=== PATIENT | female | born 1940 | race American Indian/Alaskan Native ===

== ENCOUNTER 2017-03-07 22:21 | Emergency (ER) | payer MEDICARE, OTHER ==
[~2017-03-07] VITALS: Ht 160 cm; Wt 59.1 kg
[~2017-03-07 22:21] MED LIST: ALBU8.5H8 INH; APIX5TAB3 PO; ARA20T; CELE-193 PO; FLUT1DIS INH; FOLI1TAB16 PO; HYDR200T PO; LEVO50TA8 PO; LEVO750T46 PO; LORA10TA7 PO; MULT-933 PO; PANT-47 PO; POTA20TA19 PO; PRED5TAB49 PO; ROSU20TA PO; SOTA80TA69 PO; TIOT18CA3 INH
[2017-03-07] MEDS ORDERED: HYDROmorphone inj. 0.5 MG/0.5 ML DISP.SYRIN IV ONE (23:05)
[2017-03-07] MEDS ORDERED: ondansetron/PF 4mg/2ml inj IV ONE (23:05)
[2017-03-07 23:13] LABS: BASOPHILS # (AUTO) 0.1 X10'3 (0-0.2); BASOPHILS % (AUTO) 0.5 % (0-1); EOSINOPHILS # (AUTO) 0.1 X10'3 (0-0.9); EOSINOPHILS % (AUTO) 1.1 % (0-6); HEMATOCRIT 40.6 % (35.0-45.0); HEMOGLOBIN 13.1 g/dl (12.0-16.0); LYMPHOCYTES # (AUTO) 2.1 X10'3 (1.1-4.8); LYMPHOCYTES % (AUTO) 15.7 % (21-51); MEAN CORPUSCULAR HEMOGLOBIN 26.1 PG (27.0-31.0); MEAN CORPUSCULAR HGB CONC 32.2 % (33.0-36.5); MEAN CORPUSCULAR VOLUME 81.2 FL (78-98); MEAN PLATELET VOLUME 9.6 FL (7.4-10.4); MONOCYTES # (AUTO) 0.7 X10'3 (0-0.9); MONOCYTES % (AUTO) 5.4 % (2-12); NEUTROPHILS # (AUTO) 10.3 X10'3 (1.8-7.7); NEUTROPHILS % (AUTO) 77.3 % (42-75); PLATELET COUNT 352 X10'3 (140-440); RED BLOOD COUNT 4.99 X10'6 (4.20-5.60); RED CELL DISTRIBUTION WIDTH 16.7 % (11.5-14.5); WHITE BLOOD COUNT 13.3 X10'3 (4.5-11.0)
[2017-03-07 23:18] LABS: PROTHROMBIN TIME 10.2 SECONDS (9.0-12.0)
[2017-03-07 23:24] LABS: ALANINE AMINOTRANSFERASE 19 U/L (12-78); ALBUMIN 3.4 G/DL (3.4-5.0); ALBUMIN/GLOBULIN RATIO 0.8 (1.1-1.5); ALKALINE PHOSPHATASE 125 IU/L (46-116); ANION GAP 14 (8-16); ASPARTATE AMINO TRANSFERASE 14 U/L (10-37); BILIRUBIN,TOTAL 0.8 MG/DL (0.1-1.0); BLOOD UREA NITROGEN 12 MG/DL (7-18); CALCIUM 9.2 MG/DL (8.5-10.1); CHLORIDE 100 MMOL/L (99-107); GLUCOSE 137 MG/DL (70-104); LIPASE 138 U/L (73-393); POTASSIUM 3.2 MMOL/L (3.5-5.1); SODIUM 138 MMOL/L (135-145); TOTAL CARBON DIOXIDE 24.5 MMOL/L (24-32); TOTAL PROTEIN 7.8 G/DL (6.4-8.2); eGFR > 90 ML/MIN
[2017-03-07] MEDS ORDERED: potassium Cl 20 mEq SR tablet PO STA (23:35)
[2017-03-08 01:05] LABS: CLARITY,URINE Clear (Clear); COLOR,URINE Yellow (Yellow); GLUCOSE, URINE Negative (Neg); KETONES,URINE 15 mg/dl (Neg); LEUKOCYTE ESTERASE ,URINE Negative (Neg); NITRITES, URINE Negative (Neg); OCCULT BLOOD,URINE Negative (Neg); PH,URINE 6.5 (4.8-8.0); PROTEIN,URINE Trace mg/dl (Neg)
[2017-03-08 01:06] LABS: UA COLLECTION TYPE CLN CATCH MIDSTREAM
[2017-03-08 01:12] LABS: BACTERIA,URINE NONE SEEN /HPF (Neg); MUCUS STRANDS FEW /LPF (Neg); RBC,URINE NONE SEEN /HPF (0-2); SQUAMOUS EPITHELIAL CELL,UR FEW /LPF (FEW); WBC,URINE NONE SEEN /HPF (0-4)
[2017-03-08] MEDS ORDERED: labetalol 20mg/4ml (5mg/ml) syringe IV ONE (01:15)
[2017-03-08] MEDS ORDERED: labetalol 5mg/ml 20ml inj. IV ONE (01:33)
[2017-03-08 01:49] VITALS: BP 165/70
== END 2017-03-08 01:54 | disposition home or self-care (01) ==
LOC: ER 22:22
DX: R10.84 Generalized abdominal pain (principal); R11.2 Nausea with vomiting, unspecified; R06.02 Shortness of breath; I10 Essential (primary) hypertension; M06.9 Rheumatoid arthritis, unspecified; Z90.49 Acquired absence of other specified parts of digestive tract; Z88.8 Allergy status to other drugs, medicaments and biological substances; Z86.73 Personal history of transient ischemic attack (TIA), and cerebral infarction without residual deficits
CPT/HCPCS: 36415; 71045; 74176; 80053; 81001; 83605; 83690; 84484; 85025; 85610; 93005; 96374; 96375; 99285; J1170; J2405; J3490

== ENCOUNTER 2018-04-14 14:54 | Inpatient (IN) | payer MEDICARE, OTHER ==
[2018-04-08 13:25] LABS: BASOPHILS # (AUTO) 0.1 X10'3 (0-0.2); BASOPHILS % (AUTO) 1.1 % (0-1); EOSINOPHILS # (AUTO) 0.5 X10'3 (0-0.9); EOSINOPHILS % (AUTO) 4.4 % (0-6); HEMATOCRIT 37.2 % (35.0-45.0); LYMPHOCYTES # (AUTO) 2.2 X10'3 (1.1-4.8); LYMPHOCYTES % (AUTO) 20.9 % (21-51); MEAN CORPUSCULAR HEMOGLOBIN 27.2 PG (27.0-31.0); MEAN CORPUSCULAR HGB CONC 32.4 g/dL (33.0-36.5); MEAN CORPUSCULAR VOLUME 84.1 FL (78-98); MEAN PLATELET VOLUME 8.2 FL (7.4-10.4); MONOCYTES # (AUTO) 0.7 X10'3 (0-0.9); MONOCYTES % (AUTO) 6.4 % (2-12); NEUTROPHILS # (AUTO) 7.1 X10'3 (1.8-7.7); NEUTROPHILS % (AUTO) 67.2 % (42-75); PLATELET COUNT 410 X10'3 (140-440); RED BLOOD COUNT 4.43 X10'6 (4.20-5.60); WHITE BLOOD COUNT 10.6 X10'3 (4.5-11.0)
[2018-04-08 13:33] LABS: ANION GAP 10 (8-16); BLOOD UREA NITROGEN 16 MG/DL (7-18); BUN/CREATININE RATIO 27.1 (6.6-38.0); CALCIUM 9.5 MG/DL (8.5-10.1); CHLORIDE 106 MMOL/L (99-107); CREATININE 0.59 MG/DL (0.40-0.90); GLUCOSE 92 MG/DL (70-104); SODIUM 142 MMOL/L (135-145); TOTAL CARBON DIOXIDE 25.7 MMOL/L (24-32); eGFR > 90 ML/MIN
[2018-04-08 13:37] LABS: PARTIAL THROMBOPLASTIN TIME 32 SECONDS (22-32); PROTHROMBIN TIME 10.5 SECONDS (9.0-12.0)
[~2018-04-14] VITALS: Ht 160 cm; Wt 58.2 kg
[2018-04-14] VITALS (7 sets, daily range): BP systolic 79–184; BP diastolic 47–74
[~2018-04-14 14:54] MED LIST changes: -HYDR200T PO; +HYDR200T80 PO; -SOTA80TA69 PO; +SOTA80TA73 PO; +albuterol 2.5 MG/3 ML nebule NEB SCH
[2018-04-14] MEDS ORDERED: LORazepam 0.5 MG tablet PO ONE (15:15)
[2018-04-14] MEDS ORDERED: diphenhydrAMINE 25mg capsule PO ONE (15:15)
[2018-04-14] MEDS ORDERED: LEVO75TA7 PO (15:55)
[2018-04-14] MEDS ORDERED: CLOP75TA15 PO (15:55)
[2018-04-14] MEDS ORDERED: IRON28TA4 PO (15:55)
[2018-04-14] MEDS ORDERED: CHOL10002 PO (15:55)
[2018-04-14] MEDS ORDERED: ALBU6.7H INH (15:55)
[2018-04-14] MEDS ORDERED: ASPI-1265 PO (15:55)
[2018-04-14] MEDS ORDERED: SOTA80TA73 PO (16:02)
[2018-04-14] MEDS ORDERED: APIX5TAB3 PO (16:02)
[2018-04-14] MEDS ORDERED: iohexol 350 MG/ML 50ML vial IV ONE ×2 (20:11→21:15)
[2018-04-14] MEDS ORDERED: DOPamine 400mg/D5W 250ml 250 ML IV ONE (20:11)
[2018-04-14] MEDS ORDERED: phenylephrine 10mg/ml inj. ONE (20:11)
[2018-04-14] MEDS ORDERED: heparin 1,000unit/ml 10ml vial 10 ML ONE (20:11)
[2018-04-14] MEDS ORDERED: LIDOcaine 1% (10mg/ml)w/preservative injection 20ml MDV ONE (20:11)
[2018-04-14] MEDS ORDERED: iohexol 350MG/ML 100ml bottle IV ONE (20:11)
[2018-04-14] MEDS ORDERED: atropine 0.1mg/ml 10ml syringe ONE (20:11)
[2018-04-14] MEDS ORDERED: clopidogrel 300mg tablet ONE (21:18)
--- NOTE | 2018-04-14 21:41 | NUR ---
Patient in room . I have received report from Yaneli BAL and had the opportunity to ask questions and assume patient care. Waiting for pt arrival to [id number]
--- NOTE | 2018-04-14 22:04 | NUR ---
Pt now in room 3013B. R groin used for cath site. No signs of hematoma or bleeding. Family at the bedside. NS at 100ml/hr. No complaints at this time. VS 95/47 70 HR 99 RA 18 RR 97.8 oral
[2018-04-14] MEDS ORDERED: HYDROcodone/acetaminophen 5mg/325mg tablet PO PRN (22:25)
[2018-04-14] MEDS ORDERED: DOPamine 400mg/D5W 250ml 250 ML IV SCH (22:25)
[2018-04-14] MEDS ORDERED: OXAZEpam 15mg capsule PO PRN (22:25)
[2018-04-14] MEDS ORDERED: hydrALAZINE 20mg/ml inj. IV PRN (22:25)
--- NOTE | 2018-04-14 23:00 | NUR ---
200 ml of clear urine with bedpan
[2018-04-14] MEDS: HYDROcodone/acetaminophen 10/325mg tab PO PRN (23:08)
[2018-04-15] VITALS: BP 109/41
[2018-04-15] MEDS ORDERED: albuterol 2.5 MG/3 ML nebule NEB PRN
[2018-04-15 01:00] VITALS: BP 95/34
--- NOTE | 2018-04-15 01:00 | NUR ---
200 ml clear urine
[2018-04-15 02:00] VITALS: BP 117/69
[2018-04-15] MEDS: HYDROcodone/acetaminophen 10/325mg tab PO PRN ×3 (02:17→09:48)
[2018-04-15 03:00] VITALS: BP 122/58
--- NOTE | 2018-04-15 05:34 | NUR ---
Pt tolerated well getting up to bedside commode for the first time.
[2018-04-15 06:00] VITALS: BP 96/57
[2018-04-15] MEDS ORDERED: atorvastatin 10mg tablet PO SCH (08:00)
[2018-04-15] MEDS ORDERED: pantoprazole 40mg Tablet.DR PO SCH (08:00)
[2018-04-15] MEDS ORDERED: IRON POLYSACCH PO SCH (08:00)
[2018-04-15] MEDS ORDERED: levoTHYROXINE 75mcg tablet PO SCH (08:00)
[2018-04-15] MEDS ORDERED: IRON HEME POLYP PO SCH (08:00)
[2018-04-15] MEDS ORDERED: sotalol 80mg tablet PO SCH (08:00)
[2018-04-15] MEDS ORDERED: vitamin D (cholecalciferol) 1,000 unit tablet PO SCH (08:00)
[2018-04-15] MEDS ORDERED: budesonide 0.5mg/2ml UD nebule IH SCH (08:00)
[2018-04-15] MEDS ORDERED: apixaban 5mg tablet PO SCH (08:00)
[2018-04-15] MEDS ORDERED: multivitamins, therapeutics tablet PO SCH (08:00)
[2018-04-15] MEDS ORDERED: clopidogrel 75mg tablet PO SCH (08:00)
[2018-04-15] MEDS ORDERED: hydroxychloroquine 200mg tablet PO SCH (08:00)
--- NOTE | 2018-04-15 09:57 | NUR ---
Pt given d/c instructions, no further questions at this time, IV removed catheter tip intact, all personal items returned, pt to POV in WC
[2018-04-15] MEDS ORDERED: iohexol 350MG/ML 100ml bottle IV ONE (23:31)
[2018-04-15] MEDS ORDERED: iohexol 350 MG/ML 50ML vial IV ONE (23:32)
== END 2018-04-15 10:00 | disposition home or self-care (01) | DRG 36 ==
LOC: SSTAY O 14:54 → PCU 3S 21:15
PROVIDERS: ADMIT Internal Medicine Interventional Cardiology; ATTEND Internal Medicine Interventional Cardiology
PROC: 037K3DZ Dilation of Right Internal Carotid Artery with Intraluminal Device, Percutaneous Approach (ICD-10-PCS; principal; 2018-04-14)
DX: I65.21 Occlusion and stenosis of right carotid artery (principal); E78.5 Hyperlipidemia, unspecified; I10 Essential (primary) hypertension; I70.213 Atherosclerosis of native arteries of extremities with intermittent claudication, bilateral legs; J45.909 Unspecified asthma, uncomplicated; K21.9 Gastro-esophageal reflux disease without esophagitis; I48.0 Paroxysmal atrial fibrillation; M06.9 Rheumatoid arthritis, unspecified; Z79.01 Long term (current) use of anticoagulants; Z79.02 Long term (current) use of antithrombotics/antiplatelets; Z79.51 Long term (current) use of inhaled steroids; Z79.899 Other long term (current) drug therapy; Z86.73 Personal history of transient ischemic attack (TIA), and cerebral infarction without residual deficits; Z88.8 Allergy status to other drugs, medicaments and biological substances
CPT/HCPCS: 36223; 36415; 37215; 80048; 85025; 85610; 85730; 87070; 94760; A4620; A6257; C1725; C1769; C1876; C1884; C1887; C1894; G0378; J0461; J1265; J1644; J2001; J2370; J7030; J7626; Q0163; Q9967

== ENCOUNTER 2018-04-15 22:23 | Inpatient (IN) | payer MEDICARE, OTHER | END 2018-04-20 14:20 | disposition home or self-care (01) | LOC: PCU 3S 04-18 14:40 → ER 22:23 → ED HOLD 04-16 01:27 → CICU 2S 04-16 03:37 | PROC: 04CK0Z6 (ICD-10-PCS; principal; 2018-04-16 01:50) | PROC: 04UK0KZ Supplement Right Femoral Artery with Nonautologous Tissue Substitute, Open Approach (ICD-10-PCS; 2018-04-16 01:50) | DX: I74.3 Embolism and thrombosis of arteries of the lower extremities (principal); I70.209 Unspecified atherosclerosis of native arteries of extremities, unspecified extremity; I48.91 Unspecified atrial fibrillation ==

== ENCOUNTER 2019-01-28 14:16 | Outpatient (CLI) | payer MEDICARE, OTHER ==
[~2019-01-28 14:16] MED LIST changes: -ALBU8.5H8 INH; -ARA20T; -CELE-193 PO; +FERR325T28 PO; -FLUT1DIS INH; -FOLI1TAB16 PO; -HYDR200T80 PO; +HYDR200T84 PO; +LEVO50TA PO; -LEVO50TA8 PO; -LEVO750T46 PO; -LORA10TA7 PO; -MULT-933 PO; +MULT-955 PO; -PANT-47 PO; +PANT40TA4 PO; -POTA20TA19 PO; -PRED5TAB49 PO; -ROSU20TA PO; +ROSU20TA2 PO; -TIOT18CA3 INH; -albuterol 2.5 MG/3 ML nebule NEB SCH
== END 2019-01-28 23:59 | disposition home or self-care (01) ==
LOC: RAD 14:16
PROVIDERS: ATTEND Family Medicine
DX: I69.391 Dysphagia following cerebral infarction (principal); R13.12 Dysphagia, oropharyngeal phase; I69.322 Dysarthria following cerebral infarction; R49.0 Dysphonia; K21.9 Gastro-esophageal reflux disease without esophagitis; I10 Essential (primary) hypertension; Z87.891 Personal history of nicotine dependence
CPT/HCPCS: 74230

== ENCOUNTER 2019-09-29 05:41 | Day surgery (SDC) | payer MEDICARE, OTHER ==
[2019-09-22 16:23] LABS: BASOPHILS # (AUTO) 0.1 X10'3 (0-0.2); BASOPHILS % (AUTO) 1.4 % (0-1); EOSINOPHILS # (AUTO) 0.3 X10'3 (0-0.9); EOSINOPHILS % (AUTO) 4.8 % (0-6); LYMPHOCYTES # (AUTO) 1.8 X10'3 (1.1-4.8); LYMPHOCYTES % (AUTO) 28.7 % (21-51); MEAN CORPUSCULAR HEMOGLOBIN 27.9 PG (27.0-31.0); MEAN CORPUSCULAR HGB CONC 32.6 g/dL (33.0-36.5); MEAN CORPUSCULAR VOLUME 85.6 FL (78-98); MEAN PLATELET VOLUME 9.2 FL (7.4-10.4); MONOCYTES # (AUTO) 0.5 X10'3 (0-0.9); MONOCYTES % (AUTO) 8.1 % (2-12); NEUTROPHILS # (AUTO) 3.7 X10'3 (1.8-7.7); PRE OP HEMATOCRIT 35.1 % (35.0-45.0); PRE OP HEMOGLOBIN 11.5 g/dL (12.0-16.0); PRE OP PLATELET COUNT 296 X10'3 (140-440); RED BLOOD COUNT 4.11 X10'6 (4.20-5.60); RED CELL DISTRIBUTION WIDTH 15.6 % (11.5-14.5)
[2019-09-22 16:29] LABS: ALBUMIN 3.1 G/DL (3.4-5.0); ALBUMIN/GLOBULIN RATIO 0.7 (1.1-1.5); ALKALINE PHOSPHATASE 166 IU/L (46-116); BLOOD UREA NITROGEN 24 MG/DL (7-18); BUN/CREATININE RATIO 35.8 (6.6-38.0); CALCIUM 8.9 MG/DL (8.5-10.1); CHLORIDE 107 MMOL/L (99-107); CREATININE 0.67 MG/DL (0.40-0.90); PRE OP ALT 18 U/L (30-65); PRE OP ANION GAP 9 (8-16); PRE OP AST 16 U/L (10-37); PRE OP BILIRUB, TOTAL 0.6 MG/DL (0.0-1.0); PRE OP GLUCOSE 99 MG/DL (70-104); PRE OP SODIUM 139 MMOL/L (135-145); TOTAL CARBON DIOXIDE 22.6 MMOL/L (24-32); TOTAL PROTEIN 7.6 G/DL (6.4-8.2); eGFR 85 ML/MIN
[~2019-09-29] VITALS: Ht 160 cm; Wt 57.6 kg
[2019-09-29] VITALS (16 sets, daily range): BP systolic 87–129; BP diastolic 36–69
[~2019-09-29 05:41] MED LIST changes: +ADV50100 INH; +ATOR40TA72 PO; +CALC-216 PO; +CELE-85 PO; +CLON0.1T2 PO; +DOCUMENT DATE & TIME OF BETA-BLOCKER PO ONE; +FEXO-25 PO; +LISI10TA4 PO; -ROSU20TA2 PO; +VANCOMYCIN INJ 1000 MG in NORMAL SALINE 250ml IV.SOLN IV ONE; +VITAMIN D3; +[UNRECOGNIZED DRUG - CODE] INJ; +famotidine 20mg tablet PO ONE; +ringers solution, lacted 1,000 ML IV SCH
[2019-09-29] MEDS ORDERED: ceFAZolin 2gm in dextrose, iso 50 ML IV ONE (06:00)
[2019-09-29] MEDS ORDERED: LIDOcaine 1% (10mg/ml) 2ml vial ONE (06:05)
[2019-09-29] MEDS ORDERED: fentaNYL/PF 50MCG/1 ML 2ML syringe ONE (07:13)
[2019-09-29] MEDS ORDERED: midazolam 2 mg/2 ml injection ONE (07:13)
[2019-09-29] MEDS ORDERED: ringers solution, lacted 1,000 ML IV SCH (07:44)
[2019-09-29] MEDS ORDERED: ondansetron/PF 4mg/2ml inj IV PRN (07:45)
[2019-09-29] MEDS ORDERED: proCHLORperazine 10 MG/2 ml inj IV PRN (07:45)
[2019-09-29] MEDS ORDERED: morphine 4 MG/ML inj SYRINge IV PRN (07:45)
[2019-09-29] MEDS ORDERED: morphine 2 MG/ML inj. syringe IV PRN (07:45)
[2019-09-29] MEDS ORDERED: meperidine/PF 25mg/ml syringe IV PRN ×3 (07:45)
--- NOTE | 2019-09-29 08:10 | NUR ---
Received from OR via BED, accompanied by Anesthesiologist DR POWERS-- and report given by Anesthesiolgist. PATIENT A&OX4, DENIES PAIN, V/S WNL, NEUROVASCULAR CHECKS INTACT, 20G PIV RUE, SCD ON, RIGHT HIP HIP BANDAIDS CDI, SENSATIONS AT T11
--- NOTE | 2019-09-29 10:30 | NUR ---
PATIENT A&OX4, DENIES PAIN, V/S WNL, NEUROVASCULAR CHECKS INTACT, 20G PIV RUE, SCD OFF, RIGHT HIP HIP BANDAIDS CDI, FULL SENSATIONS NOW. PATIENT TAKEN TO PAS UNIT AWAITING RIDE HOME WHICH WILL ARRIVE AT 1130. PAS RN HAS TAKEN OVER PATIENT CARE. I HAVE REVIEWED D/C INSTRUCTIONS WITH PATIENT SHE HAS VERBALIZED UNDERSTANDING.
--- NOTE | 2019-09-29 11:45 | NUR ---
AWAKE VS WNL, PAIN MINIMAL, DSG DI, UP TP BATHROOM X2, VOIDED QS. RIDE HOME HAS ARRIVED, DISCH INSTR GIVEN TO PT, DISCHARGED HOME.
== END 2019-09-29 11:45 | disposition home or self-care (01) ==
LOC: PAS 05:41
PROVIDERS: ATTEND Orthopaedic Surgery
DX: T84.84XA Pain due to internal orthopedic prosthetic devices, implants and grafts, initial encounter (principal); J43.9 Emphysema, unspecified; I25.10 Atherosclerotic heart disease of native coronary artery without angina pectoris; I48.91 Unspecified atrial fibrillation; I10 Essential (primary) hypertension; M06.9 Rheumatoid arthritis, unspecified; E03.9 Hypothyroidism, unspecified; K21.9 Gastro-esophageal reflux disease without esophagitis; M19.032 Primary osteoarthritis, left wrist; M18.11 Unilateral primary osteoarthritis of first carpometacarpal joint, right hand; Z11.59 Encounter for screening for other viral diseases; Z79.899 Other long term (current) drug therapy; Z88.8 Allergy status to other drugs, medicaments and biological substances; Z98.890 Other specified postprocedural states; Z96.642 Presence of left artificial hip joint; Z87.891 Personal history of nicotine dependence; Z86.73 Personal history of transient ischemic attack (TIA), and cerebral infarction without residual deficits; Y83.8 Other surgical procedures as the cause of abnormal reaction of the patient, or of later complication, without mention of misadventure at the time of the procedure; Y92.89 Other specified places as the place of occurrence of the external cause
CPT/HCPCS: 20680; 36415; 73502; 76000; 80053; 82948; 85025; 86885; 86900; 86901; 93005; C1713; J2001; J2250; J3010; J3370; J7120; U0003; A4618; A7000

== ENCOUNTER 2019-11-08 13:47 | Emergency (ER) | payer MEDICARE, OTHER ==
[~2019-11-08] VITALS: Ht 160 cm; Wt 53.2 kg
[~2019-11-08 13:47] MED LIST changes: -DOCUMENT DATE & TIME OF BETA-BLOCKER PO ONE; -PANT40TA4 PO; +PANT40TA54 PO; -VANCOMYCIN INJ 1000 MG in NORMAL SALINE 250ml IV.SOLN IV ONE; -famotidine 20mg tablet PO ONE; -ringers solution, lacted 1,000 ML IV SCH
[2019-11-08] MEDS ORDERED: normal saline 1000ML IV soln IVB ONE (15:20)
[2019-11-08 15:58] LABS: BASOPHILS % (AUTO) 0.3 % (0-1); EOSINOPHILS # (AUTO) 0.2 X10'3 (0-0.9); EOSINOPHILS % (AUTO) 1.2 % (0-6); HEMATOCRIT 26.5 % (35.0-45.0); LYMPHOCYTES # (AUTO) 1.1 X10'3 (1.1-4.8); LYMPHOCYTES % (AUTO) 8.5 % (21-51); MEAN CORPUSCULAR HEMOGLOBIN 28.8 PG (27.0-31.0); MEAN CORPUSCULAR VOLUME 84.7 FL (78-98); MEAN PLATELET VOLUME 8.6 FL (7.4-10.4); MONOCYTES # (AUTO) 0.7 X10'3 (0-0.9); MONOCYTES % (AUTO) 5.4 % (2-12); NEUTROPHILS # (AUTO) 11.2 X10'3 (1.8-7.7); NEUTROPHILS % (AUTO) 84.6 % (42-75); PLATELET COUNT 324 X10'3 (140-440); RED BLOOD COUNT 3.13 X10'6 (4.20-5.60); RED CELL DISTRIBUTION WIDTH 16.7 % (11.5-14.5); WHITE BLOOD COUNT 13.3 X10'3 (4.5-11.0)
[2019-11-08 16:15] LABS: CLARITY,URINE CLEAR (Clear); COLOR,URINE YELLOW (Yellow); GLUCOSE, URINE NEGATIVE (Neg); KETONES,URINE NEGATIVE (Neg); LEUKOCYTE ESTERASE ,URINE TRACE (Neg); NITRITES, URINE NEGATIVE (Neg); OCCULT BLOOD,URINE MODERATE (Neg); PROTEIN,URINE TRACE mg/dl (Neg); UROBILINOGEN,URINE 0.2 E.U/dL (0.2-1.0)
[2019-11-08 16:18] LABS: ALANINE AMINOTRANSFERASE 129 U/L (12-78); ALBUMIN 2.3 G/DL (3.4-5.0); ALBUMIN/GLOBULIN RATIO 0.5 (1.1-1.5); ANION GAP 11 (8-16); ASPARTATE AMINO TRANSFERASE 108 U/L (10-37); BILIRUBIN,TOTAL 1.9 MG/DL (0.1-1.0); BLOOD UREA NITROGEN 19 MG/DL (7-18); CALCIUM 8.7 MG/DL (8.5-10.1); CHLORIDE 99 MMOL/L (99-107); CREATININE 0.76 MG/DL (0.40-0.90); GLUCOSE 73 MG/DL (70-104); POTASSIUM 4.2 MMOL/L (3.5-5.1); SODIUM 132 MMOL/L (135-145); TOTAL CARBON DIOXIDE 22.1 MMOL/L (24-32); TOTAL PROTEIN 6.7 G/DL (6.4-8.2); eGFR 74 ML/MIN
--- NOTE | 2019-11-08 16:18 | NUR ---
placed pt on 2L n/c for increased Saturation
--- NOTE | 2019-11-08 16:24 | NUR ---
placed pt on 4L n/c for increased saturation now sat at 98%
[2019-11-08 16:26] LABS: UA COLLECTION TYPE STRAIGHT CATH
[2019-11-08 16:27] LABS: BACTERIA,URINE FEW /HPF (Neg); SQUAMOUS EPITHELIAL CELL,UR FEW /LPF (FEW)
[2019-11-08 16:28] LABS: MUCUS STRANDS FEW /LPF (Neg); RENAL CELLS, URINE FEW /HPF; TRANSITIONAL EPI CELLS,URINE FEW /HPF
[2019-11-08 16:34] LABS: ALKALINE PHOSPHATASE 1378 IU/L (46-116)
[2019-11-08] MEDS ORDERED: iohexol 300mg/ml 100ml inj. ONE (16:36)
[2019-11-08 17:43] VITALS: BP 154/59
[2019-11-08] MEDS ORDERED: methylPREDNISolone acetate 80mg/ml inj**IM only IM ONE (18:35)
== END 2019-11-08 18:59 | disposition home or self-care (01) ==
LOC: ER 13:47
DX: R13.10 Dysphagia, unspecified (principal); E86.0 Dehydration; I10 Essential (primary) hypertension; M06.9 Rheumatoid arthritis, unspecified; Z86.73 Personal history of transient ischemic attack (TIA), and cerebral infarction without residual deficits; Z90.49 Acquired absence of other specified parts of digestive tract; Z98.890 Other specified postprocedural states; Z88.8 Allergy status to other drugs, medicaments and biological substances; Z79.01 Long term (current) use of anticoagulants; Z79.899 Other long term (current) drug therapy
CPT/HCPCS: 36415; 70491; 80053; 81001; 85025; 87088; 96360; 96372; 99285; J1040; J7030; Q9967

== ENCOUNTER 2021-01-06 16:18 | Emergency (ER) | payer MEDICARE, OTHER ==
[~2021-01-06] VITALS: Ht 160 cm; Wt 52.3 kg
[~2021-01-06 16:18] MED LIST changes: +AMIO200T67 PO; +AZAT50TA18 PO; -CELE-85 PO; -FEXO-25 PO; +LISI10TA27 PO; -LISI10TA4 PO; -SOTA80TA73 PO; -VITAMIN D3; +[UNRECOGNIZED DRUG - CODE] INJ; -[UNRECOGNIZED DRUG - CODE] INJ
[2021-01-06 17:50] LABS: BASOPHILS # (AUTO) 0.1 X10'3 (0-0.2); BASOPHILS % (AUTO) 1.1 % (0-1); EOSINOPHILS # (AUTO) 0.1 X10'3 (0-0.9); EOSINOPHILS % (AUTO) 2.1 % (0-6); HEMOGLOBIN 12.8 g/dl (12.0-16.0); LYMPHOCYTES # (AUTO) 1.4 X10'3 (1.1-4.8); LYMPHOCYTES % (AUTO) 20.4 % (21-51); MEAN CORPUSCULAR HEMOGLOBIN 30.3 PG (27.0-31.0); MEAN CORPUSCULAR HGB CONC 33.6 g/dL (33.0-36.5); MEAN CORPUSCULAR VOLUME 90.3 FL (78-98); MEAN PLATELET VOLUME 8.9 FL (7.4-10.4); MONOCYTES # (AUTO) 0.5 X10'3 (0-0.9); MONOCYTES % (AUTO) 7.7 % (2-12); NEUTROPHILS # (AUTO) 4.6 X10'3 (1.8-7.7); NEUTROPHILS % (AUTO) 68.7 % (42-75); PLATELET COUNT 262 X10'3 (140-440); RED BLOOD COUNT 4.21 X10'6 (4.20-5.60); RED CELL DISTRIBUTION WIDTH 17.5 % (11.5-14.5); WHITE BLOOD COUNT 6.7 X10'3 (4.5-11.0)
[2021-01-06 18:01] LABS: PARTIAL THROMBOPLASTIN TIME 31 SECONDS (22-32)
[2021-01-06 18:04] LABS: ALANINE AMINOTRANSFERASE 40 U/L (12-78); ALBUMIN 3.3 G/DL (3.4-5.0); ALBUMIN/GLOBULIN RATIO 0.8 (1.1-1.5); ALKALINE PHOSPHATASE 288 IU/L (46-116); ANION GAP 11 (8-16); ASPARTATE AMINO TRANSFERASE 29 U/L (10-37); BILIRUBIN,TOTAL 0.9 MG/DL (0.1-1.0); BLOOD UREA NITROGEN 16 MG/DL (7-18); BUN/CREATININE RATIO 25.8 (6.6-38.0); CALCIUM 8.8 MG/DL (8.5-10.1); CHLORIDE 106 MMOL/L (99-107); CREATININE 0.62 MG/DL (0.40-0.90); GLUCOSE 100 MG/DL (70-104); POTASSIUM 3.3 MMOL/L (3.5-5.1); SODIUM 143 MMOL/L (135-145); TOTAL CARBON DIOXIDE 25.6 MMOL/L (24-32); TOTAL PROTEIN 7.5 G/DL (6.4-8.2); eGFR > 90 ML/MIN
[2021-01-06 18:14] LABS: MAGNESIUM 1.9 MG/DL (1.5-2.4)
[2021-01-06] MEDS ORDERED: potassium Cl 20 mEq SR tablet PO STA (19:37)
[2021-01-06 20:20] VITALS: BP 213/89
[2021-01-06 21:37] LABS: CLARITY,URINE CLEAR (Clear); COLOR,URINE YELLOW (Yellow); GLUCOSE, URINE NEGATIVE (Neg); KETONES,URINE NEGATIVE (Neg); LEUKOCYTE ESTERASE ,URINE TRACE (Neg); NITRITES, URINE NEGATIVE (Neg); OCCULT BLOOD,URINE NEGATIVE (Neg); PROTEIN,URINE NEGATIVE (Neg); UA COLLECTION TYPE CLN CATCH MIDSTREAM; UROBILINOGEN,URINE 0.2 E.U/dL (0.2-1.0)
[2021-01-06 21:42] LABS: BACTERIA,URINE FEW /HPF (Neg); MUCUS STRANDS NONE SEEN /LPF (Neg); RBC,URINE 0-2 /HPF (0-2); SQUAMOUS EPITHELIAL CELL,UR FEW /LPF (FEW); WBC,URINE 0-4 /HPF (0-4)
== END 2021-01-06 20:23 | disposition home or self-care (01) ==
LOC: ER 16:19
DX: R20.0 Anesthesia of skin (principal); E87.6 Hypokalemia; E11.65 Type 2 diabetes mellitus with hyperglycemia; I48.91 Unspecified atrial fibrillation; I10 Essential (primary) hypertension; Z86.73 Personal history of transient ischemic attack (TIA), and cerebral infarction without residual deficits; Z90.49 Acquired absence of other specified parts of digestive tract; Z98.890 Other specified postprocedural states; Z88.8 Allergy status to other drugs, medicaments and biological substances; Z79.899 Other long term (current) drug therapy
CPT/HCPCS: 36415; 70450; 71045; 80053; 81001; 83735; 84484; 85025; 85610; 85730; 87088; 93005; 99285

== ENCOUNTER 2021-07-31 16:13 | Emergency (ER) | payer MEDICARE, OTHER ==
[~2021-07-31] VITALS: Ht 160 cm; Wt 53.0 kg
[~2021-07-31 16:13] MED LIST changes: +AMIO100T4 PO; -AMIO200T67 PO; +CHOL100046 PO; -CLON0.1T2 PO; +CLOP75TA34 PO; +DILT90CA PO; -[UNRECOGNIZED DRUG - CODE] INJ
[2021-07-31 18:01] LABS: BASOPHILS # (AUTO) 0.1 X10'3 (0-0.2); EOSINOPHILS % (AUTO) 0.4 % (0-6); HEMATOCRIT 34.5 % (35.0-45.0); HEMOGLOBIN 11.5 g/dl (12.0-16.0); LYMPHOCYTES # (AUTO) 0.7 X10'3 (1.1-4.8); MEAN CORPUSCULAR HEMOGLOBIN 30.1 PG (27.0-31.0); MEAN CORPUSCULAR HGB CONC 33.3 g/dL (33.0-36.5); MEAN CORPUSCULAR VOLUME 90.4 FL (78-98); MEAN PLATELET VOLUME 8.6 FL (7.4-10.4); MONOCYTES # (AUTO) 0.5 X10'3 (0-0.9); MONOCYTES % (AUTO) 7.8 % (2-12); NEUTROPHILS # (AUTO) 5.4 X10'3 (1.8-7.7); NEUTROPHILS % (AUTO) 80.8 % (42-75); PLATELET COUNT 327 X10'3 (140-440); RED BLOOD COUNT 3.82 X10'6 (4.20-5.60); RED CELL DISTRIBUTION WIDTH 16.9 % (11.5-14.5); WHITE BLOOD COUNT 6.7 X10'3 (4.5-11.0)
[2021-07-31 18:21] LABS: ALANINE AMINOTRANSFERASE 241 U/L (12-78); ALBUMIN 3.2 G/DL (3.4-5.0); ALBUMIN/GLOBULIN RATIO 0.8 (1.1-1.5); ALKALINE PHOSPHATASE 335 IU/L (46-116); ANION GAP 12 (8-16); ASPARTATE AMINO TRANSFERASE 108 U/L (10-37); BILIRUBIN,TOTAL 0.9 MG/DL (0.1-1.0); BLOOD UREA NITROGEN 22 MG/DL (7-18); BUN/CREATININE RATIO 23.9 (6.6-38.0); CALCIUM 8.9 MG/DL (8.5-10.1); CHLORIDE 106 MMOL/L (99-107); CREATININE 0.92 MG/DL (0.40-0.90); GLUCOSE 104 MG/DL (70-104); POTASSIUM 3.9 MMOL/L (3.5-5.1); SODIUM 140 MMOL/L (135-145); TOTAL CARBON DIOXIDE 22.5 MMOL/L (24-32); TOTAL PROTEIN 7.3 G/DL (6.4-8.2); eGFR 59 ML/MIN
--- NOTE | 2021-07-31 18:25 | NUR ---
bedside report to cinthia arellano. pt assisted to restroom with wheechair by soda fountain manager.
[2021-07-31] MEDS ORDERED: normal saline 1000ml 1,000 ML IV ONE (18:50)
[2021-07-31 22:18] VITALS: BP 185/87
[2021-08-02 15:27] LABS: HBSAG SCREEN Negative (Negative); HEP A AB, IGM Negative (Negative); HEPATITIS C ANTIBODY 0.1 s/co ratio (0.0-0.9)
== END 2021-07-31 23:39 | disposition home or self-care (01) ==
LOC: ER 16:14
DX: N13.30 Unspecified hydronephrosis (principal); K59.00 Constipation, unspecified; R53.1 Weakness; R74.8 Abnormal levels of other serum enzymes; R20.0 Anesthesia of skin; I48.91 Unspecified atrial fibrillation; I10 Essential (primary) hypertension; M06.9 Rheumatoid arthritis, unspecified; Z86.73 Personal history of transient ischemic attack (TIA), and cerebral infarction without residual deficits; Z90.49 Acquired absence of other specified parts of digestive tract; Z88.8 Allergy status to other drugs, medicaments and biological substances; Z79.899 Other long term (current) drug therapy; Z79.01 Long term (current) use of anticoagulants
CPT/HCPCS: 36415; 71045; 76705; 80053; 83880; 84484; 85025; 93005; 96360; 99285; J7030; 86705; 86709; 86803; 87340

== ENCOUNTER 2021-08-02 15:34 | Emergency (ER) | payer MEDICARE, OTHER ==
[~2021-08-02] VITALS: Ht 160 cm; Wt 52.3 kg
[2021-08-02 16:11] VITALS: BP 158/84
== END 2021-08-02 23:04 | disposition left against medical advice (07) ==
LOC: ER 15:35
DX: M79.604 Pain in right leg (principal); Z53.21 Procedure and treatment not carried out due to patient leaving prior to being seen by health care provider

== ENCOUNTER 2021-12-13 23:04 | Emergency (ER) | payer MEDICARE, OTHER ==
[~2021-12-13] VITALS: Ht 160 cm; Wt 50.5 kg
[2021-12-14] MEDS ORDERED: HYDROcodone/acetaminophen 5mg/325mg tablet PO ONE (01:30)
== END 2021-12-14 03:04 | disposition home or self-care (01) ==
LOC: ER 23:04
DX: M25.551 Pain in right hip (principal); I10 Essential (primary) hypertension; Z88.8 Allergy status to other drugs, medicaments and biological substances; Z90.49 Acquired absence of other specified parts of digestive tract
CPT/HCPCS: 73502; 99283

== ENCOUNTER 2022-01-02 13:09 | Outpatient (CLI) | payer MEDICARE, OTHER ==
[~2022-01-02] VITALS: Ht 160 cm; Wt 54.4 kg
[2022-01-02] MEDS ORDERED: LIDO700A32 TOP (13:53)
[2022-01-02] MEDS ORDERED: AMLO-140 (13:53)
[2022-01-02] MEDS ORDERED: HYDR-3965 PO (13:53)
[2022-01-02] MEDS ORDERED: ATR0.5NEB NEB (13:53)
[2022-01-02] MEDS ORDERED: CETI10TA19 PO (13:53)
[2022-01-02] MEDS ORDERED: DOCU-342 PO (13:53)
[2022-01-02] MEDS ORDERED: [UNRECOGNIZED DRUG - OTHER] PO (13:53)
[2022-01-02] MEDS ORDERED: LEVO50TA8 (14:05)
[2022-01-02] MEDS ORDERED: LIDO700A47 (14:05)
[2022-01-02] MEDS ORDERED: LISI20TA28 PO (14:07)
[2022-01-02 15:05] LABS: BASOPHILS # (AUTO) 0.1 X10'3 (0-0.2); EOSINOPHILS # (AUTO) 0.1 X10'3 (0-0.9); EOSINOPHILS % (AUTO) 0.9 % (0-6); LYMPHOCYTES # (AUTO) 1.8 X10'3 (1.1-4.8); LYMPHOCYTES % (AUTO) 25.9 % (21-51); MEAN CORPUSCULAR HEMOGLOBIN 29.7 PG (27.0-31.0); MEAN CORPUSCULAR HGB CONC 33.5 g/dL (33.0-36.5); MEAN CORPUSCULAR VOLUME 88.7 FL (78-98); MEAN PLATELET VOLUME 8.1 FL (7.4-10.4); MONOCYTES # (AUTO) 0.5 X10'3 (0-0.9); MONOCYTES % (AUTO) 7.6 % (2-12); NEUTROPHILS # (AUTO) 4.6 X10'3 (1.8-7.7); NEUTROPHILS % (AUTO) 64.6 % (42-75); PRE OP HEMATOCRIT 39.6 % (35.0-45.0); PRE OP HEMOGLOBIN 13.3 g/dL (12.0-16.0); PRE OP PLATELET COUNT 302 X10'3 (140-440); RED BLOOD COUNT 4.46 X10'6 (4.20-5.60); RED CELL DISTRIBUTION WIDTH 14.3 % (11.5-14.5)
[2022-01-02 15:12] LABS: ALBUMIN 3.5 G/DL (3.4-5.0); ALBUMIN/GLOBULIN RATIO 0.8 (1.1-1.5); ALKALINE PHOSPHATASE 204 IU/L (46-116); BLOOD UREA NITROGEN 13 MG/DL (7-18); BUN/CREATININE RATIO 22.4 (6.6-38.0); CALCIUM 9.5 MG/DL (8.5-10.1); CHLORIDE 101 MMOL/L (99-107); CREATININE 0.58 MG/DL (0.40-0.90); PRE OP ALT 23 U/L (30-65); PRE OP ANION GAP 12 (8-16); PRE OP AST 20 U/L (10-37); PRE OP BILIRUB, TOTAL 0.7 MG/DL (0.0-1.0); PRE OP GLUCOSE 103 MG/DL (70-104); PRE OP POTASSIUM 3.9 MMOL/L (3.4-5.1); PRE OP SODIUM 137 MMOL/L (135-145); TOTAL CARBON DIOXIDE 23.6 MMOL/L (24-32); eGFR > 90 ML/MIN
[2022-01-08] MEDS ORDERED: FERR324T3 PO (11:57)
[2022-01-08] MEDS ORDERED: LISI10TA27 PO (11:57)
[2022-01-08] MEDS ORDERED: IPRA3AMP9 IH (11:58)
[2022-01-08] MEDS ORDERED: LIDO700A32 TOP (11:59)
[2022-01-09] MEDS ORDERED: ringers solution, lacted 1,000 ML IV SCH (05:00)
[2022-01-09] MEDS ORDERED: gabapentin 300mg capsule PO ONE (05:30)
[2022-01-09] MEDS ORDERED: vancomycin/NS 1 GM in NS 250 ML IV ONE (05:30)
[2022-01-09] MEDS ORDERED: celeCOXIB 100mg capsule PO ONE (05:30)
[2022-01-09] MEDS ORDERED: famotidine 20mg tablet PO ONE (05:30)
[2022-01-09] MEDS ORDERED: ipratropium 0.5 MG/2.5ML nebule IH ONE (05:30)
[2022-01-09] MEDS ORDERED: oxyCODONE SR 10mg (sust. release) tab -2 tabs (20mg) PO ONE (05:30)
[2022-01-09] MEDS ORDERED: albuterol 2.5 MG/3 ML nebule NEB ONE (05:30)
[2022-01-09] MEDS ORDERED: acetaminophen 325mg tablet PO ONE (05:30)
[2022-01-09] MEDS ORDERED: metoclopramide 5 mg/ml inj IV ONE (05:30)
[2022-01-09] MEDS ORDERED: ceFAZolin inj. 2,000 MG in dextrose 5%-water 100 ML IV ONE (05:30)
[2022-01-09] MEDS ORDERED: tranexamic acid inj. 1,000 MG in normal saline IV soln 100ML IV ONE (05:30)
== END 2022-01-02 23:59 | disposition home or self-care (01) ==
LOC: PRE-OP 13:09 → EDSTATUS 01-09 11:00
PROVIDERS: ATTEND Orthopaedic Surgery
DX: Z01.818 Encounter for other preprocedural examination (principal); M16.11 Unilateral primary osteoarthritis, right hip; I70.0 Atherosclerosis of aorta; M41.84 Other forms of scoliosis, thoracic region; M47.814 Spondylosis without myelopathy or radiculopathy, thoracic region
CPT/HCPCS: 36415; 71046; 80053; 85025; 86885; 86900; 86901; 87081; J0690; J3370; J3490; J7060; J7120

== ENCOUNTER 2024-03-05 12:11 | Inpatient (IN) | payer MEDICARE, OTHER ==
[~2024-03-05] VITALS: Ht 160 cm; Wt 46.8 kg
[2024-03-05] VITALS (23 sets, daily range): BP systolic 66–141; BP diastolic 33–96; PULSE 91–133; RESP 11–20; TEMP 97.5–98.3; O2SAT 97–99
[~2024-03-05 12:11] MED LIST changes: -ADV50100 INH; +ALEN70TA80 PO; -AMIO100T4 PO; +AMLO-140 PO; +APIX2.5T PO; -APIX5TAB3 PO; +ATOR40TA71 PO; -ATOR40TA72 PO; -AZAT50TA18 PO; -CLOP75TA34 PO; -DILT90CA PO; +FERR324T PO; -FERR325T28 PO; +HYDR200T73 PO; -HYDR200T84 PO; +IPRA3AMP31 NEB; +LACT1CAP65 PO; -LEVO50TA PO; +LEVO50TA8 PO; -LISI10TA27 PO; -MULT-955 PO; +MULT400T15 PO; +POLY510P31 PO
[2024-03-05] MEDS ORDERED: fentaNYL/PF 50MCG/1 ML 2ML syringe ONE (12:18)
[2024-03-05] MEDS ORDERED: heparin 1,000unit/ml 10ml vial 10 ML ONE (12:18)
[2024-03-05] MEDS ORDERED: midazolam 1 mg/ML 2ml injection ONE (12:18)
[2024-03-05] MEDS ORDERED: verapamil 2.5 mg/ml inj IV ONE (12:18)
[2024-03-05] MEDS ORDERED: LIDOcaine 1% 30ml preserv. free vial ONE (12:18)
[2024-03-05] MEDS ORDERED: nitroGLYCERIN 500mcg/5mL D5W 5 ML IV ONE (12:19)
[2024-03-05] MEDS ORDERED: iohexol 350MG/ML 100ml bottle IV ONE (12:19)
[2024-03-05] MEDS ORDERED: phenylephrine 10mg/ml inj. ONE (12:44)
[2024-03-05] MEDS ORDERED: ondansetron/PF 4mg/2ml inj IV PRN ×2 (13:15→20:35)
[2024-03-05] MEDS ORDERED: acetaminophen 325mg tablet PO PRN ×3 (13:15→20:35)
[2024-03-05] MEDS ORDERED: magnesium hydroxide 30ml (MOM) UD suspension PO PRN (13:15)
[2024-03-05] MEDS ORDERED: morphine 4 MG/ML inj SYRINge IV PRN (13:15)
[2024-03-05] MEDS: LidoCAINE 2% Topical Jelly 11mL syringe (UROJET) TOP ONE (13:15)
[2024-03-05] MEDS: normal saline 1000ml 1,000 ML IV SCH (13:15)
[2024-03-05] MEDS: ringers solution, lacted 1,000 ML IV ONE ×4 (13:47→16:47)
[2024-03-05 14:32] LABS: BASOPHILS # (AUTO) 0.1 X10'3 (0-0.2); BASOPHILS % (AUTO) 1.3 % (0-1); EOSINOPHILS # (AUTO) 0.1 X10'3 (0-0.9); EOSINOPHILS % (AUTO) 1.5 % (0-6); HEMATOCRIT 31.4 % (35.0-45.0); HEMOGLOBIN 10.2 g/dl (12.0-16.0); LYMPHOCYTES # (AUTO) 2.3 X10'3 (1.1-4.8); LYMPHOCYTES % (AUTO) 26.2 % (21-51); MEAN CORPUSCULAR HEMOGLOBIN 26.9 PG (27.0-31.0); MEAN CORPUSCULAR HGB CONC 32.4 g/dL (33.0-36.5); MEAN CORPUSCULAR VOLUME 83.2 FL (78-98); MEAN PLATELET VOLUME 9.7 FL (7.4-10.4); MONOCYTES # (AUTO) 0.7 X10'3 (0-0.9); MONOCYTES % (AUTO) 8.3 % (2-12); NEUTROPHILS # (AUTO) 5.5 X10'3 (1.8-7.7); NEUTROPHILS % (AUTO) 62.7 % (42-75); PLATELET COUNT 301 X10'3 (140-440); RED BLOOD COUNT 3.78 X10'6 (4.20-5.60); RED CELL DISTRIBUTION WIDTH 16.2 % (11.5-14.5); WHITE BLOOD COUNT 8.7 X10'3 (4.5-11.0)
[2024-03-05] MEDS: morphine 2 MG/ML inj. syringe IV PRN (14:35)
[2024-03-05 14:48] LABS: ALANINE AMINOTRANSFERASE 25 U/L (12-78); ALBUMIN 2.7 G/DL (3.4-5.0); ALBUMIN/GLOBULIN RATIO 0.7 (1.1-1.5); ALKALINE PHOSPHATASE 165 IU/L (46-116); ANION GAP 14 (8-16); ASPARTATE AMINO TRANSFERASE 22 U/L (10-37); BILIRUBIN,TOTAL 0.7 MG/DL (0.1-1.0); BLOOD UREA NITROGEN 21 MG/DL (7-18); BUN/CREATININE RATIO 24.4 (10.0-20.0); CALCIUM 8.2 MG/DL (8.5-10.1); CHLORIDE 104 MMOL/L (99-107); CHOL/HDL RATIO 1.9 (0.00-4.99); CHOLESTEROL 172 MG/DL (0-200); CREATININE 0.86 MG/DL (0.40-0.90); GLUCOSE 121 MG/DL (70-104); HDL CHOLESTEROL 89 MG/DL (35-60); LDL CHOLESTEROL 61 MG/DL (50-100); MAGNESIUM 1.9 MG/DL (1.5-2.4); POTASSIUM 4.2 MMOL/L (3.5-5.1); SODIUM 134 MMOL/L (135-145); TOTAL CARBON DIOXIDE 16.3 MMOL/L (24-32); TOTAL PROTEIN 6.6 G/DL (6.4-8.2); TRIGLYCERIDES 79 MG/DL (20-135); eCRCL 37 ML/MIN; eGFR 63 ML/MIN
[2024-03-05] MEDS ORDERED: TOBR5DRO7 LEFTEYE (14:55)
[2024-03-05] MEDS ORDERED: ARA20T (14:55)
[2024-03-05] MEDS ORDERED: LIDO700A47 TP (14:55)
[2024-03-05] MEDS ORDERED: FERR325T29 PO (14:56)
[2024-03-05 16:03] LABS: BASOPHILS # (AUTO) 0.1 X10'3 (0-0.2); BASOPHILS % (AUTO) 0.5 % (0-1); EOSINOPHILS # (AUTO) 0.1 X10'3 (0-0.9); EOSINOPHILS % (AUTO) 0.5 % (0-6); HEMATOCRIT 28.2 % (35.0-45.0); HEMOGLOBIN 8.8 g/dl (12.0-16.0); LYMPHOCYTES # (AUTO) 0.9 X10'3 (1.1-4.8); LYMPHOCYTES % (AUTO) 7.7 % (21-51); MEAN CORPUSCULAR HEMOGLOBIN 26.9 PG (27.0-31.0); MEAN CORPUSCULAR HGB CONC 31.3 g/dL (33.0-36.5); MEAN CORPUSCULAR VOLUME 85.9 FL (78-98); MEAN PLATELET VOLUME 9.2 FL (7.4-10.4); MONOCYTES # (AUTO) 0.5 X10'3 (0-0.9); MONOCYTES % (AUTO) 4.4 % (2-12); NEUTROPHILS # (AUTO) 9.9 X10'3 (1.8-7.7); NEUTROPHILS % (AUTO) 86.9 % (42-75); PLATELET COUNT 227 X10'3 (140-440); RED BLOOD COUNT 3.28 X10'6 (4.20-5.60); RED CELL DISTRIBUTION WIDTH 16.7 % (11.5-14.5); WHITE BLOOD COUNT 11.4 X10'3 (4.5-11.0)
[2024-03-05 16:21] LABS: ALBUMIN 2.1 G/DL (3.4-5.0); ANION GAP 12 (8-16); BLOOD UREA NITROGEN 20 MG/DL (7-18); CALCIUM 7.7 MG/DL (8.5-10.1); CHLORIDE 107 MMOL/L (99-107); CREATININE 0.69 MG/DL (0.40-0.90); GLUCOSE 110 MG/DL (70-104); SODIUM 135 MMOL/L (135-145); TOTAL CARBON DIOXIDE 15.7 MMOL/L (24-32); eCRCL 46 ML/MIN; eGFR 81 ML/MIN
[2024-03-05] MEDS: ringers solution, lacted 1,000 ML IV SCH (17:38)
[2024-03-05] MEDS ORDERED: proCHLORperazine 10 MG/2 ml inj IV PRN (20:35)
[2024-03-05] MEDS ORDERED: OXAZEpam 15mg capsule PO PRN (20:35)
[2024-03-05] MEDS ORDERED: HYDROcodone/acetaminophen 10/325mg tab PO PRN (20:35)
[2024-03-05] MEDS ORDERED: HYDROcodone/acetaminophen 5mg/325mg tablet PO PRN (20:35)
[2024-03-05] MEDS: famotidine 20mg tablet PO SCH (20:49)
[2024-03-05] MEDS: tobramycin/dexamethasone ophthalmic suspension LEFTEYE SCH (20:51)
[2024-03-06] VITALS (17 sets, daily range): BP systolic 100–188; BP diastolic 64–118; PULSE 73–147; RESP 14–22; TEMP 97.5–98.7; O2SAT 95–99
[2024-03-06 03:56] LABS: BASOPHILS # (AUTO) 0.1 X10'3 (0-0.2); BASOPHILS % (AUTO) 0.8 % (0-1); EOSINOPHILS # (AUTO) 0.1 X10'3 (0-0.9); EOSINOPHILS % (AUTO) 1.5 % (0-6); HEMATOCRIT 35.1 % (35.0-45.0); HEMOGLOBIN 11.4 g/dl (12.0-16.0); LYMPHOCYTES # (AUTO) 1.4 X10'3 (1.1-4.8); LYMPHOCYTES % (AUTO) 18.9 % (21-51); MEAN CORPUSCULAR HEMOGLOBIN 27.1 PG (27.0-31.0); MEAN CORPUSCULAR HGB CONC 32.4 g/dL (33.0-36.5); MEAN CORPUSCULAR VOLUME 83.6 FL (78-98); MEAN PLATELET VOLUME 8.7 FL (7.4-10.4); MONOCYTES # (AUTO) 0.6 X10'3 (0-0.9); MONOCYTES % (AUTO) 8.7 % (2-12); NEUTROPHILS % (AUTO) 70.1 % (42-75); PLATELET COUNT 271 X10'3 (140-440); RED BLOOD COUNT 4.19 X10'6 (4.20-5.60); RED CELL DISTRIBUTION WIDTH 16.7 % (11.5-14.5); WHITE BLOOD COUNT 7.2 X10'3 (4.5-11.0)
[2024-03-06 04:02] LABS: ALBUMIN 2.4 G/DL (3.4-5.0); ANION GAP 10 (8-16); BLOOD UREA NITROGEN 13 MG/DL (7-18); CALCIUM 8.4 MG/DL (8.5-10.1); CHLORIDE 110 MMOL/L (99-107); CHOL/HDL RATIO 2.5 (0.00-4.99); CHOLESTEROL 168 MG/DL (0-200); GLUCOSE 96 MG/DL (70-104); HDL CHOLESTEROL 67 MG/DL (35-60); LDL CHOLESTEROL 58 MG/DL (50-100); MAGNESIUM 1.8 MG/DL (1.5-2.4); PHOSPHORUS 2.9 MG/DL (2.3-4.5); POTASSIUM 4.3 MMOL/L (3.5-5.1); SODIUM 141 MMOL/L (135-145); TOTAL CARBON DIOXIDE 20.7 MMOL/L (24-32); TRIGLYCERIDES 72 MG/DL (20-135); eCRCL 64 ML/MIN; eGFR > 90 ML/MIN
[2024-03-06] MEDS: diltiazem-NS 100mg/100ml 100 ML IV SCH (05:24)
[2024-03-06] MEDS: metoprolol tartrate 50mg tablet PO SCH ×2 (07:27→20:36)
[2024-03-06] MEDS: enoxaparin 40mg/0.4ml syringe SUBCUT SCH (07:28)
[2024-03-06] MEDS ORDERED: morphine 4 MG/ML inj SYRINge IV PRN (09:40)
[2024-03-06] MEDS: morphine 2 MG/ML inj. syringe IV PRN (10:10)
[2024-03-06] MEDS ORDERED: famotidine 20mg tablet PO SCH (15:49)
[2024-03-06] MEDS: normal saline 1000ml 1,000 ML IV SCH (17:52)
[2024-03-06] MEDS: lactose-reduced food (Ensure Enlive) - 237ml bottle PO SCH (18:00)
[2024-03-06] MEDS ORDERED: VITAMIN D3 PO SCH (20:00)
[2024-03-06] MEDS ORDERED: CALCIUM CITRATE PO SCH (20:00)
[2024-03-06] MEDS: ipratropium/albuterol 3ml nebule NEB SCH (20:02)
[2024-03-06] MEDS: ferrous sulfate 325mg tablet PO SCH (20:35)
[2024-03-06] MEDS: apixaban 2.5mg tablet PO SCH (20:37)
[2024-03-06] MEDS ORDERED: polyethylene glycol 3350 17gm powd pack PO PRN (21:00)
[2024-03-06] MEDS ORDERED: tobramycin/dexamethasone ophthalmic suspension LEFTEYE SCH (21:00)
[2024-03-07] VITALS (8 sets, daily range): BP systolic 92–196; BP diastolic 51–90; PULSE 74–82; RESP 14–19; TEMP 97.3–98.2; O2SAT 97–100
[2024-03-07] MEDS: metoprolol tartrate 50mg tablet PO ONE (03:39)
[2024-03-07] MEDS: lisinopril 10 MG tablet PO ONE (03:41)
[2024-03-07 06:54] LABS: ALBUMIN 2.6 G/DL (3.4-5.0); ANION GAP 13 (8-16); BLOOD UREA NITROGEN 11 MG/DL (7-18); BUN/CREATININE RATIO 31.4 (10.0-20.0); CALCIUM 8.8 MG/DL (8.5-10.1); CHLORIDE 109 MMOL/L (99-107); CREATININE 0.35 MG/DL (0.40-0.90); GLUCOSE 82 MG/DL (70-104); MAGNESIUM 1.6 MG/DL (1.5-2.4); PHOSPHORUS 2.3 MG/DL (2.3-4.5); POTASSIUM 3.2 MMOL/L (3.5-5.1); SODIUM 142 MMOL/L (135-145); TOTAL CARBON DIOXIDE 20.2 MMOL/L (24-32); eCRCL 92 ML/MIN; eGFR > 90 ML/MIN
[2024-03-07] MEDS: levoTHYROXINE 25mcg tablet PO SCH (07:46)
[2024-03-07] MEDS: atorvastatin 20mg tablet PO SCH (07:47)
[2024-03-07] MEDS: pantoprazole 40mg Tablet.DR PO SCH (07:48)
[2024-03-07] MEDS: cholecalciferol (vitamin D3) 1,000 unit (25mcg) tablet PO SCH (07:49)
[2024-03-07] MEDS: hydroxychloroquine 200mg tablet PO SCH (07:49)
[2024-03-07] MEDS: LIDOcaine 5% patch TP SCH (07:50)
[2024-03-07] MEDS ORDERED: non-formulary drug (Lactobacillus Acidophilus (Probiotic) 1 CAP) PO SCH (08:00)
[2024-03-07] MEDS ORDERED: BENA40TA73 PO (11:53)
[2024-03-07] MEDS ORDERED: METO50TA16 PO ×2 (11:53→16:42)
[2024-03-07] MEDS: potassium Cl 20 mEq SR tablet PO STA (14:05)
[2024-03-07] MEDS: potassium CL 10mEq/100ml bag 100 ML IV SCH (14:30)
[2024-03-07] MEDS ORDERED: BENA40TA72 PO (16:42)
== END 2024-03-07 17:03 | disposition home or self-care (01) | DRG 286 ==
LOC: ER 12:11 → CICU 2S 13:18 → PCU 3S 03-06 11:12
PROVIDERS: ADMIT Internal Medicine Critical Care Medicine; ATTEND Internal Medicine Critical Care Medicine
PROC: 4A023N7 Measurement of Cardiac Sampling and Pressure, Left Heart, Percutaneous Approach (ICD-10-PCS; principal; 2024-03-05)
PROC: B2111ZZ Fluoroscopy of Multiple Coronary Arteries using Low Osmolar Contrast (ICD-10-PCS; 2024-03-05)
PROC: B2151ZZ Fluoroscopy of Left Heart using Low Osmolar Contrast (ICD-10-PCS; 2024-03-05)
PROC: 30233N1 Transfusion of Nonautologous Red Blood Cells into Peripheral Vein, Percutaneous Approach (ICD-10-PCS; 2024-03-05)
DX: I48.20 Chronic atrial fibrillation, unspecified (principal); R57.0 Cardiogenic shock; I20.9 Angina pectoris, unspecified; E86.0 Dehydration; I95.9 Hypotension, unspecified; E03.9 Hypothyroidism, unspecified; I73.9 Peripheral vascular disease, unspecified; E87.6 Hypokalemia; I10 Essential (primary) hypertension; M06.9 Rheumatoid arthritis, unspecified; Z79.01 Long term (current) use of anticoagulants; Z79.899 Other long term (current) drug therapy; Z86.73 Personal history of transient ischemic attack (TIA), and cerebral infarction without residual deficits; Z90.710 Acquired absence of both cervix and uterus; Z82.5 Family history of asthma and other chronic lower respiratory diseases; Z82.49 Family history of ischemic heart disease and other diseases of the circulatory system
CPT/HCPCS: 93306; 93458; 99285; C9606; 36415; 36430; 71045; 80048; 80053; 80061; 83735; 84100; 85025; 86885; 86900; 86901; 86920; 87081; 93005; 93925; 94640; 94760; 99152; 99153; A6258; C1751; C1760; C1894; G0378; J1644; J1650; J2003; J2250; J2270; J2370; J3010; J3480; J3490; J7030; J7040; J7120; P9016; Q9967

== ENCOUNTER 2024-05-09 17:28 | Inpatient (IN) | payer MEDICARE, OTHER ==
[~2024-05-09] VITALS: Ht 154.9 cm; Wt 44.0 kg
[~2024-05-09 17:28] MED LIST changes: -ALEN70TA80 PO; +AMIO100T4 PO; -AMLO-140 PO; +ARA20T PO; -CALC-216 PO; -FERR324T PO; +FERR325T29 PO; -LACT1CAP65 PO; +LIDO700A47 TP; +LISI20TA28 PO; +NIFE-72 PO; -POLY510P31 PO; +TOBR5DRO7 LEFTEYE
[2024-05-09] MEDS: HYDROcodone/acetaminophen 5mg/325mg tablet PO ONE (20:34)
[2024-05-09] MEDS ORDERED: METO25TA6 (21:41)
[2024-05-09] MEDS ORDERED: FLUT1DIS14 INH (21:41)
[2024-05-09] MEDS ORDERED: ALEN70TA80 PO (21:41)
[2024-05-09] MEDS ORDERED: LOSA50TA64 PO (21:41)
[2024-05-09] MEDS ORDERED: acetaminophen 325mg tablet PO PRN ×2 (22:25)
[2024-05-09] MEDS ORDERED: potassium Cl 40MEQ/1/2NS 520ml 520 ML IV PRN (22:25)
[2024-05-09] MEDS ORDERED: mag hydrox/Alum hydrox/simeth 30ml oral suspension PO PRN (22:25)
[2024-05-09] MEDS ORDERED: magnesium hydroxide 30ml (MOM) UD suspension PO PRN (22:25)
[2024-05-09] MEDS ORDERED: magnesium sulf-water 4G/100mL 100 ML IV PRN (22:25)
[2024-05-09] MEDS ORDERED: magnesium sulf-water 2g/50mL 50 ML IV PRN (22:25)
[2024-05-09] MEDS ORDERED: potassium Cl 20 mEq SR tablet PO PRN (22:25)
[2024-05-09 23:43] LABS: PROTHROMBIN TIME 10.7 SECONDS (9.0-12.0)
[2024-05-09 23:44] LABS: APTT 31 SECONDS (22-32)
[2024-05-09] MEDS ORDERED: ipratropium/albuterol 3ml nebule NEB PRN (23:45)
[2024-05-09 23:54] LABS: BASOPHILS # (AUTO) 0.1 X10'3 (0-0.2); BASOPHILS % (AUTO) 1.1 % (0-1); EOSINOPHILS # (AUTO) 0.2 X10'3 (0-0.9); HEMOGLOBIN 9.6 g/dl (12.0-16.0); LYMPHOCYTES % (AUTO) 10.6 % (21-51); MEAN CORPUSCULAR VOLUME 84.4 FL (78-98); MEAN PLATELET VOLUME 8.4 FL (7.4-10.4); MONOCYTES # (AUTO) 0.6 X10'3 (0-0.9); MONOCYTES % (AUTO) 6.8 % (2-12); NEUTROPHILS # (AUTO) 7.3 X10'3 (1.8-7.7); NEUTROPHILS % (AUTO) 79.5 % (42-75); PLATELET COUNT 252 X10'3 (140-440); RED BLOOD COUNT 3.55 X10'6 (4.20-5.60); WHITE BLOOD COUNT 9.2 X10'3 (4.5-11.0)
[2024-05-10] VITALS (7 sets, daily range): BP systolic 137–158; BP diastolic 53–99; PULSE 69–92; RESP 14–16; TEMP 97.3–98.9; O2SAT 95–100
[2024-05-10 00:10] LABS: ALANINE AMINOTRANSFERASE 21 U/L (12-78); ALBUMIN 2.4 G/DL (3.4-5.0); ALBUMIN/GLOBULIN RATIO 0.6 (1.1-1.5); ALKALINE PHOSPHATASE 156 IU/L (46-116); ANION GAP 13 (8-16); ASPARTATE AMINO TRANSFERASE 17 U/L (10-37); BILIRUBIN,TOTAL 0.4 MG/DL (0.1-1.0); BLOOD UREA NITROGEN 13 MG/DL (7-18); BUN/CREATININE RATIO 25.5 (10.0-20.0); CALCIUM 8.1 MG/DL (8.5-10.1); CHLORIDE 108 MMOL/L (99-107); CREATININE 0.51 MG/DL (0.40-0.90); GLUCOSE 96 MG/DL (70-104); POTASSIUM 3.4 MMOL/L (3.5-5.1); SODIUM 142 MMOL/L (135-145); TOTAL CARBON DIOXIDE 21.5 MMOL/L (24-32); TOTAL PROTEIN 6.3 G/DL (6.4-8.2); eCRCL 59 ML/MIN; eGFR > 90 ML/MIN
[2024-05-10 00:24] LABS: HEMOGLOBIN A1C 5.2 % (4.5-6.2)
[2024-05-10] MEDS: normal saline 1000ml 1,000 ML IV SCH (00:45)
[2024-05-10 02:45] LABS: ALBUMIN 2.5 G/DL (3.4-5.0); ANION GAP 12 (8-16); BLOOD UREA NITROGEN 12 MG/DL (7-18); BUN/CREATININE RATIO 22.2 (10.0-20.0); CALCIUM 8.3 MG/DL (8.5-10.1); CHLORIDE 109 MMOL/L (99-107); CREATININE 0.54 MG/DL (0.40-0.90); GLUCOSE 92 MG/DL (70-104); MAGNESIUM 1.7 MG/DL (1.5-2.4); POTASSIUM 3.5 MMOL/L (3.5-5.1); SODIUM 142 MMOL/L (135-145); TOTAL CARBON DIOXIDE 20.8 MMOL/L (24-32); eCRCL 56 ML/MIN; eGFR > 90 ML/MIN
[2024-05-10 02:50] LABS: BASOPHILS # (AUTO) 0.1 X10'3 (0-0.2); BASOPHILS % (AUTO) 0.9 % (0-1); EOSINOPHILS # (AUTO) 0.2 X10'3 (0-0.9); EOSINOPHILS % (AUTO) 2.4 % (0-6); HEMATOCRIT 30.1 % (35.0-45.0); HEMOGLOBIN 9.6 g/dl (12.0-16.0); LYMPHOCYTES # (AUTO) 1.2 X10'3 (1.1-4.8); LYMPHOCYTES % (AUTO) 12.7 % (21-51); MEAN CORPUSCULAR HEMOGLOBIN 26.9 PG (27.0-31.0); MEAN PLATELET VOLUME 9.2 FL (7.4-10.4); MONOCYTES # (AUTO) 0.8 X10'3 (0-0.9); MONOCYTES % (AUTO) 8.5 % (2-12); NEUTROPHILS # (AUTO) 7.1 X10'3 (1.8-7.7); NEUTROPHILS % (AUTO) 75.5 % (42-75); PLATELET COUNT 269 X10'3 (140-440); RED BLOOD COUNT 3.58 X10'6 (4.20-5.60); RED CELL DISTRIBUTION WIDTH 18.8 % (11.5-14.5); WHITE BLOOD COUNT 9.3 X10'3 (4.5-11.0)
[2024-05-10 03:57] LABS: ANISOCYTOSIS 1+
[2024-05-10 03:58] LABS: PLATELET ESTIMATE NORMAL
[2024-05-10 04:44] LABS: BILIRUBIN,URINE NEGATIVE (Neg); CLARITY,URINE CLEAR (Clear); COLOR,URINE YELLOW (Yellow); GLUCOSE, URINE NEGATIVE (Neg); KETONES,URINE NEGATIVE (Neg); LEUKOCYTE ESTERASE ,URINE NEGATIVE (Neg); NITRITES, URINE NEGATIVE (Neg); OCCULT BLOOD,URINE NEGATIVE (Neg); PROTEIN,URINE NEGATIVE (Neg); UROBILINOGEN,URINE 0.2 E.U/dL (0.2-1.0)
[2024-05-10 04:55] LABS: UA COLLECTION TYPE NON-SPECIFIED
[2024-05-10] MEDS: morphine 2 MG/ML inj. syringe IV PRN ×2 (06:40→12:02)
[2024-05-10] MEDS: ondansetron/PF 4mg/2ml inj IV PRN (06:44)
[2024-05-10] MEDS: cholecalciferol (vitamin D3) 1,000 unit (25mcg) tablet PO SCH (08:27)
[2024-05-10] MEDS: docusate sod 100mg capsule PO SCH (08:27)
[2024-05-10] MEDS: K and/or MAG REPLACEMENT MC SCH (08:28)
[2024-05-10] MEDS: HYDROchlorothiazide 25mg tablet PO ONE (10:34)
[2024-05-10] MEDS: losartan 50mg tablet PO ONE (10:34)
[2024-05-10] MEDS: amiodarone 200mg tablet PO ONE (10:35)
[2024-05-10] MEDS: NIFEdipine XL 30mg tablet PO ONE (10:35)
[2024-05-10] MEDS ORDERED: albuterol 2.5 MG/3 ML nebule NEB PRN (14:10)
[2024-05-10] MEDS: HYDROmorphone inj. 0.5 MG/0.5 ML DISP.SYRIN IV PRN (15:02)
[2024-05-10] MEDS: metoprolol tartrate 25mg tablet PO SCH (19:42)
[2024-05-10] MEDS: apixaban 2.5mg tablet PO SCH (19:42)
[2024-05-11 06:00] VITALS: BP 149/58; PULSE 72; RESP 15; TEMP 97.2
[2024-05-11 06:47] LABS: BASOPHILS # (AUTO) 0.1 X10'3 (0-0.2); BASOPHILS % (AUTO) 1.8 % (0-1); EOSINOPHILS # (AUTO) 0.2 X10'3 (0-0.9); EOSINOPHILS % (AUTO) 2.2 % (0-6); HEMATOCRIT 30.1 % (35.0-45.0); HEMOGLOBIN 9.5 g/dl (12.0-16.0); LYMPHOCYTES # (AUTO) 1.1 X10'3 (1.1-4.8); LYMPHOCYTES % (AUTO) 13.2 % (21-51); MEAN CORPUSCULAR HEMOGLOBIN 26.9 PG (27.0-31.0); MEAN CORPUSCULAR HGB CONC 31.7 g/dL (33.0-36.5); MEAN CORPUSCULAR VOLUME 84.9 FL (78-98); MEAN PLATELET VOLUME 9.2 FL (7.4-10.4); MONOCYTES # (AUTO) 0.6 X10'3 (0-0.9); MONOCYTES % (AUTO) 7.4 % (2-12); NEUTROPHILS # (AUTO) 6.1 X10'3 (1.8-7.7); NEUTROPHILS % (AUTO) 75.4 % (42-75); PLATELET COUNT 270 X10'3 (140-440); RED BLOOD COUNT 3.54 X10'6 (4.20-5.60); RED CELL DISTRIBUTION WIDTH 18.4 % (11.5-14.5); WHITE BLOOD COUNT 8.2 X10'3 (4.5-11.0)
[2024-05-11 06:53] LABS: ALBUMIN 2.2 G/DL (3.4-5.0); ANION GAP 12 (8-16); BLOOD UREA NITROGEN 6 MG/DL (7-18); CALCIUM 8.3 MG/DL (8.5-10.1); CHLORIDE 106 MMOL/L (99-107); GLUCOSE 62 MG/DL (70-104); MAGNESIUM 1.5 MG/DL (1.5-2.4); POTASSIUM 3.2 MMOL/L (3.5-5.1); SODIUM 138 MMOL/L (135-145); TOTAL CARBON DIOXIDE 19.6 MMOL/L (24-32); eCRCL 100 ML/MIN; eGFR > 90 ML/MIN
[2024-05-11] MEDS: potassium Cl 20 mEq SR tablet PO PRN (08:03)
[2024-05-11] MEDS: HYDROchlorothiazide 25mg tablet PO SCH (08:04)
[2024-05-11] MEDS: NIFEdipine XL 30mg tablet PO SCH (08:04)
[2024-05-11] MEDS: losartan 50mg tablet PO SCH (08:05)
[2024-05-11] MEDS: amiodarone 200mg tablet PO SCH (08:06)
[2024-05-11] MEDS: levoTHYROXINE 25mcg tablet PO SCH (08:08)
[2024-05-11 16:00] VITALS: BP 139/64; PULSE 75; RESP 18; TEMP 97.7; O2SAT 99
[2024-05-11 16:18] VITALS: PULSE 77; RESP 16; O2SAT 99
[2024-05-11 18:00] VITALS: BP 130/52; PULSE 80; RESP 16; TEMP 98; O2SAT 99
[2024-05-11 20:00] VITALS: RESP 15; O2SAT 95
[2024-05-11 22:00] VITALS: BP 158/58; PULSE 79; RESP 16; TEMP 98.5; O2SAT 98
[2024-05-12] VITALS (8 sets, daily range): BP systolic 131–166; BP diastolic 47–69; PULSE 59–98; RESP 16–17; TEMP 97.4–98.1; O2SAT 95–99
[2024-05-12 06:28] LABS: BASOPHILS # (AUTO) 0.1 X10'3 (0-0.2); BASOPHILS % (AUTO) 1.1 % (0-1); EOSINOPHILS # (AUTO) 0.1 X10'3 (0-0.9); EOSINOPHILS % (AUTO) 1.6 % (0-6); HEMATOCRIT 27.2 % (35.0-45.0); LYMPHOCYTES # (AUTO) 1.1 X10'3 (1.1-4.8); LYMPHOCYTES % (AUTO) 14.6 % (21-51); MEAN CORPUSCULAR HEMOGLOBIN 27.6 PG (27.0-31.0); MEAN CORPUSCULAR HGB CONC 33.2 g/dL (33.0-36.5); MEAN CORPUSCULAR VOLUME 83.3 FL (78-98); MEAN PLATELET VOLUME 8.8 FL (7.4-10.4); MONOCYTES # (AUTO) 0.8 X10'3 (0-0.9); MONOCYTES % (AUTO) 10.1 % (2-12); NEUTROPHILS # (AUTO) 5.7 X10'3 (1.8-7.7); NEUTROPHILS % (AUTO) 72.6 % (42-75); PLATELET COUNT 274 X10'3 (140-440); RED BLOOD COUNT 3.27 X10'6 (4.20-5.60); RED CELL DISTRIBUTION WIDTH 18.3 % (11.5-14.5); WHITE BLOOD COUNT 7.9 X10'3 (4.5-11.0)
[2024-05-12 06:37] LABS: ALBUMIN 2.1 G/DL (3.4-5.0); ANION GAP 11 (8-16); BLOOD UREA NITROGEN 6 MG/DL (7-18); BUN/CREATININE RATIO 16.2 (10.0-20.0); CALCIUM 8.4 MG/DL (8.5-10.1); CHLORIDE 107 MMOL/L (99-107); CREATININE 0.37 MG/DL (0.40-0.90); GLUCOSE 91 MG/DL (70-104); MAGNESIUM 1.4 MG/DL (1.5-2.4); POTASSIUM 3.6 MMOL/L (3.5-5.1); SODIUM 139 MMOL/L (135-145); eCRCL 81 ML/MIN; eGFR > 90 ML/MIN
[2024-05-12] MEDS ORDERED: amiodarone 100mg tablet PO SCH (09:05)
[2024-05-12] MEDS: amiodarone 100mg tablet PO SCH (10:33)
[2024-05-12] MEDS ORDERED: magnesium sulf-water 2g/50mL 50 ML IV PRN (14:50)
[2024-05-12] MEDS ORDERED: magnesium sulf-water 4G/100mL 100 ML IV PRN (14:50)
[2024-05-12] MEDS ORDERED: non-formulary drug (Fluticasone/Salmeterol (Advair 100-50 Diskus) 1 PUFF) INH SCH (20:00)
[2024-05-12] MEDS: ipratropium/albuterol 3ml nebule NEB SCH (20:12)
[2024-05-12] MEDS: polyethylene glycol 3350 17gm powd pack PO SCH (20:32)
[2024-05-12] MEDS: magnesium Cl slow-release 64mg tablet PO PRN (20:34)
[2024-05-12] MEDS: tobramycin/dexamethasone ophthalmic suspension LEFTEYE SCH (20:35)
[2024-05-12] MEDS: leflunomide 20mg tablet PO SCH (20:35)
[2024-05-12] MEDS ORDERED: NIFEdipine XL 30mg tablet PO SCH (21:00)
[2024-05-13] VITALS (23 sets, daily range): BP systolic 110–163; BP diastolic 54–76; PULSE 60–106; RESP 12–18; TEMP 97–98.7; O2SAT 93–100
[2024-05-13 06:04] LABS: BASOPHILS # (AUTO) 0.1 X10'3 (0-0.2); BASOPHILS % (AUTO) 0.6 % (0-1); EOSINOPHILS # (AUTO) 0.1 X10'3 (0-0.9); EOSINOPHILS % (AUTO) 1.3 % (0-6); HEMOGLOBIN 10.1 g/dl (12.0-16.0); LYMPHOCYTES % (AUTO) 12.6 % (21-51); MEAN CORPUSCULAR HEMOGLOBIN 27.3 PG (27.0-31.0); MEAN CORPUSCULAR HGB CONC 32.6 g/dL (33.0-36.5); MEAN CORPUSCULAR VOLUME 83.9 FL (78-98); MEAN PLATELET VOLUME 8.9 FL (7.4-10.4); MONOCYTES # (AUTO) 0.8 X10'3 (0-0.9); MONOCYTES % (AUTO) 10.1 % (2-12); NEUTROPHILS # (AUTO) 6.2 X10'3 (1.8-7.7); NEUTROPHILS % (AUTO) 75.4 % (42-75); PLATELET COUNT 286 X10'3 (140-440); RED BLOOD COUNT 3.69 X10'6 (4.20-5.60); RED CELL DISTRIBUTION WIDTH 17.9 % (11.5-14.5); WHITE BLOOD COUNT 8.2 X10'3 (4.5-11.0)
[2024-05-13 06:32] LABS: ALBUMIN 2.1 G/DL (3.4-5.0); ANION GAP 11 (8-16); BLOOD UREA NITROGEN 6 MG/DL (7-18); BUN/CREATININE RATIO 15.4 (10.0-20.0); CALCIUM 8.5 MG/DL (8.5-10.1); CHLORIDE 105 MMOL/L (99-107); CREATININE 0.39 MG/DL (0.40-0.90); GLUCOSE 90 MG/DL (70-104); MAGNESIUM 1.3 MG/DL (1.5-2.4); POTASSIUM 3.4 MMOL/L (3.5-5.1); SODIUM 140 MMOL/L (135-145); TOTAL CARBON DIOXIDE 24.2 MMOL/L (24-32); eCRCL 77 ML/MIN; eGFR > 90 ML/MIN
[2024-05-13] MEDS ORDERED: amiodarone 100mg tablet PO SCH (08:00)
[2024-05-13] MEDS ORDERED: non-formulary drug (Levothyroxine Sodium 1 TAB) PO SCH (08:00)
[2024-05-13] MEDS: LIDOcaine 5% patch TP SCH (08:00)
[2024-05-13] MEDS: losartan 50mg tablet PO SCH (08:47)
[2024-05-13] MEDS: atorvastatin 20mg tablet PO SCH (08:47)
[2024-05-13] MEDS: HYDROchlorothiazide 12.5mg capsule PO SCH (08:47)
[2024-05-13] MEDS: hydroxychloroquine 200mg tablet PO SCH (08:47)
[2024-05-13] MEDS: pantoprazole 40mg Tablet.DR PO SCH (08:48)
[2024-05-13] MEDS: magnesium Cl slow-release 64mg tablet PO PRN (10:42)
[2024-05-13] MEDS ORDERED: potassium Cl 40MEQ/1/2NS 520ml 520 ML IV PRN (12:50)
[2024-05-13] MEDS ORDERED: potassium Cl 20 mEq SR tablet PO PRN (12:50)
[2024-05-13] MEDS ORDERED: ondansetron/PF 4mg/2ml inj IV PRN (12:55)
[2024-05-13] MEDS ORDERED: enalaprilat 1.25mg/ml 2ml vial IV PRN (12:55)
[2024-05-13] MEDS ORDERED: proCHLORperazine 10 MG/2 ml inj IV PRN (12:55)
[2024-05-13] MEDS: ringers solution, lacted 1,000 ML IV SCH (12:55)
[2024-05-13] MEDS ORDERED: labetalol 20mg/4ml (5mg/ml) syringe IV PRN (12:55)
[2024-05-13] MEDS ORDERED: morphine 2 MG/ML inj. syringe IV PRN (12:55)
[2024-05-13] MEDS ORDERED: meperidine/PF 25mg/ml syringe IV PRN ×3 (12:55)
[2024-05-13] MEDS ORDERED: BUPIVAcaine/dex-water/PF 7.5 mg/ml 2ml ampul ONE (13:12)
[2024-05-13] MEDS ORDERED: MIDAZolam 1 MG/ML 5ML VIAL ONE (13:15)
[2024-05-13] MEDS: vancomycin/NS 1 GM ADD-VANTAGE 250 ML IV ONE (13:15)
[2024-05-13] MEDS ORDERED: fentaNYL/PF 50MCG/1 ML 2ML syringe ONE (13:15)
[2024-05-13] MEDS: ceFAZolin 2gm in dextrose, iso 50 ML IV ONE (13:15)
[2024-05-13] MEDS ORDERED: acetaminophen 1,000mg/100ml IV 100 ML IV ONE (15:58)
[2024-05-13] MEDS ORDERED: morphine 4 MG/ML inj SYRINge ONE (16:04)
[2024-05-13] MEDS: morphine 4 MG/ML inj SYRINge IV PRN (16:32)
[2024-05-13] MEDS: ketorolac trometh 15mg/ml vial 15 MG/ML ML IV ONE (17:07)
[2024-05-13] MEDS: vancomycin/NS 1 GM ADD-VANTAGE 250 ML IV SCH (20:41)
[2024-05-13] MEDS: leflunomide 20mg tablet PO SCH (20:43)
[2024-05-14] VITALS (7 sets, daily range): BP systolic 141–187; BP diastolic 58–84; PULSE 81–98; RESP 16–20; TEMP 97.6–98.6; O2SAT 93–100
[2024-05-14] MEDS: hydrALAZINE 20mg/ml inj. IV PRN (04:51)
[2024-05-14 07:04] LABS: BASOPHILS # (AUTO) 0.1 X10'3 (0-0.2); BASOPHILS % (AUTO) 0.6 % (0-1); EOSINOPHILS % (AUTO) 0.3 % (0-6); HEMATOCRIT 28.6 % (35.0-45.0); HEMOGLOBIN 9.2 g/dl (12.0-16.0); LYMPHOCYTES # (AUTO) 0.4 X10'3 (1.1-4.8); LYMPHOCYTES % (AUTO) 2.6 % (21-51); MEAN CORPUSCULAR HEMOGLOBIN 27.1 PG (27.0-31.0); MEAN CORPUSCULAR HGB CONC 32.1 g/dL (33.0-36.5); MEAN CORPUSCULAR VOLUME 84.5 FL (78-98); MEAN PLATELET VOLUME 8.6 FL (7.4-10.4); MONOCYTES # (AUTO) 0.9 X10'3 (0-0.9); MONOCYTES % (AUTO) 6.2 % (2-12); NEUTROPHILS # (AUTO) 13.6 X10'3 (1.8-7.7); NEUTROPHILS % (AUTO) 90.3 % (42-75); PLATELET COUNT 293 X10'3 (140-440); RED BLOOD COUNT 3.39 X10'6 (4.20-5.60); RED CELL DISTRIBUTION WIDTH 18.1 % (11.5-14.5); WHITE BLOOD COUNT 15.1 X10'3 (4.5-11.0)
[2024-05-14 07:28] LABS: ANION GAP 15 (8-16); BLOOD UREA NITROGEN 4 MG/DL (7-18); BUN/CREATININE RATIO 10.3 (10.0-20.0); CALCIUM 8.2 MG/DL (8.5-10.1); CHLORIDE 102 MMOL/L (99-107); CREATININE 0.39 MG/DL (0.40-0.90); SODIUM 137 MMOL/L (135-145); TOTAL CARBON DIOXIDE 20.1 MMOL/L (24-32); eCRCL 77 ML/MIN; eGFR > 90 ML/MIN
[2024-05-14 07:45] LABS: GLUCOSE 49 MG/DL (70-104)
[2024-05-14 07:46] LABS: POTASSIUM 2.9 MMOL/L (3.5-5.1)
[2024-05-14] MEDS ORDERED: TRANEXAMIC ACID in 0.7% saline 1,000 MG/100 ML IVPB IV ONE (08:00)
[2024-05-14] MEDS: potassium Cl 20 mEq SR tablet PO PRN (12:16)
[2024-05-14] MEDS ORDERED: potassium bicarbonate/cit acid 25mEq tablet.effervescent PO SCH (16:00)
[2024-05-15] MEDS ORDERED: leflunomide 20mg tablet PO SCH (08:00)
== END 2024-05-14 15:46 | DRG 481 ==
LOC: ER 17:29 → ED HOLD 22:26 → ORTHO 4S 05-10 12:02
PROVIDERS: ADMIT Internal Medicine Critical Care Medicine; ATTEND Nurse Practitioner Family
PROC: BW2G1ZZ Computerized Tomography (CT Scan) of Pelvic Region using Low Osmolar Contrast (ICD-10-PCS; 2024-05-09)
PROC: 0QS704Z Reposition Left Upper Femur with Internal Fixation Device, Open Approach (ICD-10-PCS; principal; 2024-05-13 13:12)
DX: S72.25XA Nondisplaced subtrochanteric fracture of left femur, initial encounter for closed fracture (principal); E44.0 Moderate protein-calorie malnutrition; I48.19 Other persistent atrial fibrillation; M97.02XA Periprosthetic fracture around internal prosthetic left hip joint, initial encounter; Z68.1 Body mass index [BMI] 19.9 or less, adult; G89.11 Acute pain due to trauma; Z20.822 Contact with and (suspected) exposure to COVID-19; M06.9 Rheumatoid arthritis, unspecified; J44.9 Chronic obstructive pulmonary disease, unspecified; E03.9 Hypothyroidism, unspecified; W18.39XA Other fall on same level, initial encounter; I10 Essential (primary) hypertension; Z88.8 Allergy status to other drugs, medicaments and biological substances; Z88.1 Allergy status to other antibiotic agents; Z79.01 Long term (current) use of anticoagulants; Z79.899 Other long term (current) drug therapy; Z90.49 Acquired absence of other specified parts of digestive tract; Z86.73 Personal history of transient ischemic attack (TIA), and cerebral infarction without residual deficits; Y93.89 Activity, other specified; Y92.89 Other specified places as the place of occurrence of the external cause; Y99.8 Other external cause status
CPT/HCPCS: 36415; 70450; 72192; 73502; 73552; 76000; 80048; 80053; 81003; 82948; 83036; 83735; 84466; 85008; 85025; 85610; 85730; 86885; 86900; 86901; 87081; 87502; 87503; 87811; 93005; 94640; 94760; 97110; 97162; 97530; 99285; A4615; A4618; A6213; A6258; A6449; A7000; C1713; C1758; G0378; J0131; J0360; J0690; J1171; J2250; J2270; J2405; J3010; J3370; J3490; J7030

== ENCOUNTER 2024-09-15 14:34 | Emergency (ER) | payer MEDICARE, OTHER ==
[~2024-09-15] VITALS: Ht 152.4 cm; Wt 47.0 kg
[2024-09-15 14:34] VITALS: TEMP 97.8
[~2024-09-15 14:34] MED LIST changes: +ALEN70TA80 PO; +FLUT1DIS14 INH; -LISI20TA28 PO; +LOSA50TA64 PO; +METO25TA6
[2024-09-15 15:06] LABS: LEUKOCYTE ESTERASE ,URINE MODERATE (Neg); NITRITES, URINE POSITIVE (Neg); OCCULT BLOOD,URINE NEGATIVE (Neg)
--- NOTE | 2024-09-15 15:10 | Physician Documentation ---
History of Present Illness ~ Chief Complaint: Diarrhea Stated Complaint: ALOC Time Seen by MD: 14:40 Primary Medical Doctor: Chirag Source: patient Mode of Arrival: EMS Exam Limitations: no limitations HPI Patient who has had a watery diarrhea since this morning. No nausea or vomiting. No pain. No recent antibiotic use, travel or eating out. She had diarrhea a couple of weeks ago but it was not this bad. She was trying to get out of the bathroom and got tangled up in her walker and she fell. She called her life Alert button and they brought her in for evaluation. She is complaining of right ankle pain from the fall. A couple of months ago had a left hip surgery. Medication Reconciliation Allergies: Coded Allergies: sumatriptan (Verified Allergy, Severe, SWELLING OF THROAT, 09/15/24) sumatriptan succinate (Verified Allergy, Unknown, 09/15/24) Scheduled Alendronate Sodium (Alendronate Sodium), 1 TAB PO Q7D, (Reported) Amiodarone HCl (Amiodarone HCl), 1 TAB PO DAILY, (Reported) Apixaban (Eliquis), 1 TAB PO Q12H, (Reported) Atorvastatin Calcium (Atorvastatin Calcium), 1 TAB PO DAILY, (Reported) Cephalexin*Monohydrate* (Keflex*), 1 CAP PO TID Cholecalciferol (Vitamin D3) (Vitamin D3), 1 CAP PO DAILY, (Reported) Ferrous Sulfate (Ferrous Sulfate), 1 TAB PO BID, (Reported) Fluticasone/Salmeterol (Advair 100-50 Diskus), 1 PUFF INH Q12H, (Reported) Hydroxychloroquine Sulfate* (Plaquenil*), 1 TAB PO DAILY, (Reported) Ipratropium/Albuterol Sulfate (Duoneb 2.5-0.5 Mg/3 Ml Soln), 3 ML NEB BID, (Reported) Leflunomide (Leflunomide), 1 TAB PO DAILY, (Reported) Levothyroxine Sodium (Levothyroxine Sodium), 1 TAB PO DAILY, (Reported) Lidocaine (Lidocaine), 1 PATCH TP DAILY, (Reported) Losartan Potassium (Losartan Potassium), 1 TAB PO DAILY, (Reported) Metoprolol Tartrate (Metoprolol Tartrate), 2 TAB BID, (Reported) Multivitamin with Folic Acid (Tab-A-Dariana Tablet), 1 TAB PO DAILY, (Reported) Nifedipine (Nifedipine Er), 30 MG PO HS Pantoprazole Sodium (Pantoprazole Sodium), 1 TAB PO DAILY, (Reported) Tobramycin/Dexamethasone (Tobramycin-Dexameth Ophth Susp), 1 DROP LEFTEYE TID, (Reported) Past Medical History Past Medical History: CVA/TIA/Stroke, Atrial Fibrillation, Hypertension, Vascular Disease, Rheumatoid Arthritis Past Surgical History: cholecystectomy, orthopedic surgeries Patient History: FH: myocardial infarction FATHER, , Age: 76, Cause: Emphysema lung, Onset:76 Alcohol Use: None Drug Use: none Lives with: Alone Lives In: Home Review of Systems All Other Systems at this time: Reviewed and Negative Physical Exam Vital Signs: Temperature: 97.8, Source: Oral, Heart Rate: 86, Respiratory Rate: 16, BP: 173/67, Pulse Oximetry: 97, Weight: 47.000 Oxygen Flow Rate: 0 General Appearance: alert, no apparent distress Neck: normal inspection, full range of motion Respiratory: lungs clear, normal breath sounds, no respiratory distress Chest: no accessory muscle use Cardiology Exam: regular rate, rhythm, no edema, no murmur Gastrointestinal: normal palpation, non-tender Extremities: normal range of motion Extremities Right ankle: Good pulses and sensation, no obvious deformity, tender laterally and medially Psychiatric: normal mood/affect Skin: normal color, warm/dry Progress Progress Note Patient in with urinary tract infection. When telling her this she remembers that several days ago she had some burning with urination and did not think much of it. Diarrhea may be secondary to the UTI. Gave Rocephin in the ED. initially blood pressure was low and she received 2 L of fluids and it has corrected nicely. C diff was negative. Culture has been sent off for the ur ine. Culture is also been sent off for stool. Labs otherwise pretty unremarkable. Discharging home in good condition with family. Giving script for Keflex. Follow up with PCP in the next week or return here if new or worsening symptoms. Results/Orders Results/Orders Orders - HETAL WOODARD MD Straight Cath For Urine Sample (09/15/24 14:49) Ankle, Complete(3vw Min) (09/15/24 ) * May Place Rectal Tube * (09/15/24 15:02) Cult Stool (Enteric Pathogens) (09/15/24 15:04) Cult Urine + [address] (09/15/24 15:27) Completed Orders - HETAL WOODARD MD Cbc/Diff (09/15/24 14:49) CMP (09/15/24 14:49) Ankle, Complete(3vw Min) (09/15/24 ) C Diff Toxin (09/15/24 15:02) Electrocardiogram (09/15/24 14:39) Ua W/Microscopic, Cult If Ind (09/15/24 14:57) Ceftriaxone/I0s-Nmyzqwso 1gm (Rocephin 1 (09/15/24 15:35) Medications Received in ER Medications (Trade) Dose Ordered Sig/Trina Route PRN Reason Start Time Stop Time Status Last Admin Dose Admin Ceftriaxone Sodium 50 ml @ 100 mls/hr ONCE ONCE IV 09/15/24 15:35 09/15/24 16:04 DC 09/15/24 15:38 100 MLS/HR Vital Signs 09/15/24 09/15/24 14:34 15:00 Temp 97.8 Pulse 77 86 Resp 18 16 B/P (MAP) 94/56 173/67 (102) Pulse Ox 98 97 O2 Flow Rate 0 0 Laboratory Tests Test 09/15/24 14:48 09/15/24 14:57 09/15/24 15:15 Clostridium Difficile Toxin A & B Negative Clostridium difficile Antigen Negative Urine Specimen Description Keller cath Urine Color Yellow Urine Clarity Cloudy Urine pH 7.0 Urine Specific [place] 1.020 Urine Protein 30 H Urine Glucose (UA) Negative Urine Ketones Negative Urine Occult Blood Negative Urine Nitrite Positive H Urine Bilirubin Negative Urine Urobilinogen 0.2 Urine Leukocyte Esterase Moderate H Urine RBC None seen Urine WBC Tntc H Urine Squamous Epithelial Cells Few Urine Transitional Epithelial Cells Few Urine Renal Cells Few Urine Bacteria 4+ Urine Mucus Few Urine Culture Indicated Indicated Volume Urine Centrifuged 10 ml Urine Comment White Blood Count 12.0 H Red Blood Count 3.96 L Hemoglobin 10.7 L Hematocrit 33.7 L Mean Corpuscular Volume 85.2 Mean Corpuscular Hemoglobin 27.1 Mean Corpuscular Hemoglobin Concent 31.9 L Red Cell Distribution Width 17.7 H Platelet Count 247 Mean Platelet Volume 8.7 Neutrophils (%) (Auto) 89.7 H Lymphocytes (%) (Auto) 6.9 L Monocytes (%) (Auto) 2.0 Eosinophils (%) (Auto) 0.7 Basophils (%) (Auto) 0.7 Neutrophils # (Auto) 10.7 H Lymphocytes # (Auto) 0.8 L Monocytes # (Auto) 0.2 Eosinophils # (Auto) 0.1 Basophils # (Auto) 0.1 CBC Comment Sodium Level 137 Potassium Level 3.7 Chloride Level 109 H Carbon Dioxide Level 18.0 L Anion Gap 10 Blood Urea Nitrogen 19 H Creatinine 0.73 Estimated GFR/1.73 m2 76 BUN/Creatinine Ratio 26.0 H Glucose Level 96 Calcium Level 8.8 Total Bilirubin 0.5 Aspartate Amino Transf (AST/SGOT) 20 Alanine Aminotransferase (ALT/SGPT) 16 Alkaline Phosphatase 182 H Total Protein 6.8 Albumin 2.8 L Globulin 4.0 Albumin/Globulin Ratio 0.7 L Chemistry Comments Microbiology Date/Time Source Procedure Growth Status 09/15/24 15:27 Urine Keller Cath Urine Culture - Preliminary Culture received. Resulted EKG/XRAY/CT/US/VASC/MRI EKG : EKG Rate: 78 EKG: NSR, no ST T wave changes, NM (162) Departure Impression: Primary Impression: Urinary tract infection Qualified Codes: N39.0 - Urinary tract infection, site not specified Additional Impressions: Diarrhea Qualified Codes: R19.7 - Diarrhea, unspecified Dehydration Condition: Stable Additional Instructions: Follow-up with your doctor in the next week for recheck. Complete your antibiotics. Return here if new or worsening symptoms. Referrals: NO PRIMARY CARE PROVIDER (PCP) Prescriptions Cephalexin*Monohydrate* (Keflex*) 500 Mg Capsule 1 CAP PO TID for 7 Days, #21 CAP Prov: HETAL WOODARD MD 09/15/24 Education Educated: Patient Educated regarding: diagnosis, treatment, need for follow up Signature Scribe Signature: No scribe used Attestation: No scribe used HETAL WOODARD MD Sep 15, 2024 15:10
--- NOTE | 2024-09-15 15:14 | ELECTROCARDIOGRAPH REPORT ---
[facility] Test Date: 2024-09-15 Test Time: 14:39:46 Pat Name: LIANNA WESTON Department: EMERGENCY ROOM Patient ID: [facility]-[id number] Room: Gender: F Animal Laboratory Technician: : 1940 Requested By: HETAL WOODARD Order Number: [id number] Reading MD: Dr. Alex Wilson Measurements Intervals [place] Rate: 78 P: 72 KS: 162 QRS: 30 QRSD: 91 T: 64 QT: 436 QTc: 497 Interpretive Statements Sinus rhythm Probable left atrial enlargement Borderline T abnormalities, anterior leads Borderline prolonged QT interval Electronically Signed On 09-15-2024 18:34:[address] Alex Wilson Please click the below link to view image of tracing.
[2024-09-15 15:24] LABS: UA COLLECTION TYPE FOLEY CATH
[2024-09-15 15:26] LABS: MUCUS STRANDS FEW /LPF (Neg); RENAL CELLS, URINE FEW /HPF; SQUAMOUS EPITHELIAL CELL,UR FEW /LPF (FEW)
[2024-09-15 15:33] LABS: MEAN PLATELET VOLUME 8.7 FL (7.4-10.4); RED CELL DISTRIBUTION WIDTH 17.7 % (11.5-14.5)
[2024-09-15] MEDS: CefTRIAXone/D5W-Rocephin 1gm 50 ML IV ONE (15:38)
[2024-09-15 16:00] LABS: CREATININE 0.73 MG/DL (0.40-0.90); TOTAL CARBON DIOXIDE 18.0 MMOL/L (24-32); eCRCL 42 ML/MIN; eGFR 76 ML/MIN
--- NOTE | 2024-09-15 16:01 | RADIOLOGY REPORT ---
EXAM: DI ANKLE, COMPLETE(3VW MIN) HISTORY: 84-year-old female with right ankle pain after fall. COMPARISON: None TECHNIQUE: Three views of the right ankle were performed. FINDINGS: No acute fracture or dislocation are identified about the right ankle. The mortise is intac t. There are postoperative changes calcaneal fixation. The bones are diffusely osteopenic. There is a fused os trigonum. There are degenerative changes of the subtalar joint, calcaneocuboid joint, and talonavicular joint. There are postoperative changes of the 1st and 3rd metatarsal bones, not fully i devan here. IMPRESSION: 1. Osteopenia without evidence of acute fracture of the right ankle. 2. Degenerative and postoperative changes as detailed above.
[2024-09-15 16:04] LABS: C DIFF ANTIGEN NEGATIVE (NEGATIVE); C DIFF SPECIMEN=DIARRHEA? ACCEPTABLE; C DIFFICILE TOXINS A&B NEGATIVE (Neg)
[2024-09-15] MEDS ORDERED: CEPH-585 PO (16:24)
[2024-09-15 16:36] VITALS: BP 150/100; PULSE 79; RESP 16; O2SAT 97
== END 2024-09-15 17:40 | disposition home or self-care (01) ==
LOC: ER 14:34
DX: N39.0 Urinary tract infection, site not specified (principal); R19.7 Diarrhea, unspecified; E86.0 Dehydration; M25.571 Pain in right ankle and joints of right foot; I10 Essential (primary) hypertension; I48.91 Unspecified atrial fibrillation; M06.9 Rheumatoid arthritis, unspecified; Z88.8 Allergy status to other drugs, medicaments and biological substances; Z86.73 Personal history of transient ischemic attack (TIA), and cerebral infarction without residual deficits; Z90.49 Acquired absence of other specified parts of digestive tract
CPT/HCPCS: 36415; 73610; 80053; 81001; 85025; 87088; 87324; 87449; 93005; 96365; 99285; J0696; 87077; 87186

== ENCOUNTER 2025-02-14 02:18 | Inpatient (IN) | payer MEDICARE, OTHER ==
[2025-02-14] VITALS (11 sets, daily range): BP systolic 139–150; BP diastolic 62–76; PULSE 59–91; RESP 16–26; TEMP 97.2–98.2; O2SAT 94–100
[~2025-02-14] VITALS: Ht 160 cm; Wt 82.1 kg
[~2025-02-14 02:18] MED LIST changes: +NIFE90TA70 PO
--- NOTE | 2025-02-14 02:44 | ELECTROCARDIOGRAPH REPORT ---
[facility] Test Date: 2025-02-14 Test Time: 02:42:37 Pat Name: LIANNA WESTON Department: [facility] Patient ID: [facility]-[id number] Room: [place] [address] Gender: F Counseling Services Director: : 1940 Requested By: CARLOS FERRARO Order Number: [id number] Reading MD: Dr. Alex Wilson Measurements Intervals [place] Rate: 84 P: 75 [place]: 173 QRS: 31 QRSD: 95 T: 70 QT: 418 QTc: 495 Interpretive Statements Sinus rhythm Probable left atrial enlargement Borderline prolonged QT interval Electronically Signed On 02-15-2025 11:18:[address] Alex Wilson Please click the below link to view image of tracing.
[2025-02-14] MEDS: magnesium sulf-water 2g/50mL 50 ML IV ONE (02:50)
--- NOTE | 2025-02-14 02:53 | Physician Documentation ---
History of Present Illness ~ General Chief Complaint: Shortness of Breath Stated Complaint: SOB Time Seen by MD: 02:25 Primary Medical Doctor: Chirag Source: patient, EMS Mode of Arrival: EMS History of Present Illness Initial Comments Patient is an 84-year-old female with past medical history of hypertension, AFib and TIA brought in by ambulance from home to the ED for evaluation of shortness of breath with productive cough for the past week. Patient reports that she has had white phlegm with cough, and her shortness of breath along with cough has been worsening for the past two days. She has an inhaler and nebulizer at home. On route patient was satting at 96 on room air, they gave her 2 L of oxygen and she was at 99. Patient denies any chills, fevers, chest pain, abdominal pain, nausea/vomiting/diarrhea. Medication Reconciliation Allergies: Coded Allergies: sumatriptan (Verified Allergy, Severe, SWELLING OF THROAT, 02/14/25) sumatriptan succinate (Verified Allergy, Unknown, 02/14/25) Scheduled Amiodarone HCl (Amiodarone HCl), 1 TAB PO DAILY, (Reported) Apixaban (Eliquis), 1 TAB PO Q12H, (Reported) Atorvastatin Calcium (Atorvastatin Calcium), 1 TAB PO DAILY, (Reported) Cholecalciferol (Vitamin D3) (Vitamin D3), 1 CAP PO DAILY, (Reported) Ferrous Sulfate (Ferrous Sulfate), 1 TAB PO BID, (Reported) Fluticasone/Salmeterol (Advair 100-50 Diskus), 1 PUFF INH Q12H, (Reported) Hydroxychloroquine Sulfate* (Plaquenil*), 1 TAB PO DAILY, (Reported) Ipratropium/Albuterol Sulfate (Duoneb 2.5-0.5 Mg/3 Ml Soln), 3 ML NEB BID, (Reported) Levothyroxine Sodium (Levothyroxine Sodium), 1 TAB PO DAILY, (Reported) Lidocaine (Lidocaine), 1 PATCH TP DAILY, (Reported) Losartan Potassium (Losartan Potassium), 1 TAB PO DAILY, (Reported) Metoprolol Tartrate (Metoprolol Tartrate), 2 TAB BID, (Reported) Multivitamin with Folic Acid (Tab-A-Dariana Tablet), 1 TAB PO DAILY, (Reported) Pantoprazole Sodium (Pantoprazole Sodium), 1 TAB PO DAILY, (Reported) Tobramycin/Dexamethasone (Tobramycin-Dexameth Ophth Susp), 1 DROP LEFTEYE TID, (Reported) Discontinued Medications Alendronate Sodium (Alendronate Sodium), 1 TAB PO Q7D, (Reported) Discontinued Reason: patient no longer taking Leflunomide (Leflunomide), 1 TAB PO DAILY, (Reported) Discontinued Reason: patient no longer taking Nifedipine (Nifedipine Er), 30 MG PO HS Discontinued Reason: patient no longer taking Past Medical History Past Medical History: CVA/TIA/Stroke, Atrial Fibrillation, Hypertension, Vascular Disease, Asthma, Rheumatoid Arthritis Past Surgical History: cholecystectomy, orthopedic surgeries Patient History: FH: myocardial infarction FATHER, , Age: 75, Cause: Emphysema lung, Onset:76 Alcohol Use: None Drug Use: none Lives with: Alone Lives In: Home Review of Systems All Other Systems at this time: Reviewed and Negative ROS Constitutional: Negative for fever and chills. HENT: Negative for sore throat and rhinorrhea. Eyes: Negative for pain and redness. Respiratory: Positive for shortness of breath, cough Cardiovascular: Negative for chest pain and palpitations. Gastrointestinal: Negative for nausea and vomiting. . Genitourinary: Negative for dysuria and hematuria. Musculoskeletal: Negative for acute back pain and acute neck pain. Skin: Negative for rash and pruritus. Neurological: Negative for acute numbness or weakness. Physical Exam Physical Exam Vital Signs: Temperature: 97.5, Source: Oral, Heart Rate: 82, Respiratory Rate: 20, BP: 211/66, Pulse Oximetry: 100, Weight: 82.100 Oxygen Flow Rate: 2.0 Physical Exam General: Awake () distress. Verbal Head: No trauma Eyes: Nl lids Nl conjunctiva. No eye discharge ENT: Mucous membranes Nl. Lips Nl. No lesions Neck: Supple. No JVD. No visible mass Resp: Rate normal. Wheezing in all lung [place] on auscultation. Heart: Regular rhythm. No murmur. No rub Abdomen: Soft. Nontender. No guarding. No rebound Musc/skeletal: No calf or popliteal tenderness. No edema Skin: No rash. No petechiae. Not diaphoretic Neuro: Alert, oriented. Normal speech Progress Progress Note 0316: Consulted with on-call resident hospitalist. He kindly accepts the patient for admission at this time. Results/Orders Results/Orders Orders - FIDENCIO FERRARO MD Chest,Single View (02/14/25 02:45) Monitor (02/14/25 02:37) Saline Lock (02/14/25 02:37) Oxygen (02/14/25 02:37) Page Hospitalist (02/14/25 03:00) Fill Out Med Reconciliation (02/14/25 03:00) Completed Orders - FIDENCIO FERRARO MD Chest,Single View (02/14/25 02:45) Cbc/Diff (02/14/25 02:37) BMP (02/14/25 02:37) PBNP (02/14/25 02:37) Electrocardiogram (02/14/25 02:37) Hs Troponin I W Calculations (02/14/25 02:37) Albuterol 2.5mg/3ml Nebule (Proventil 2. (02/14/25 02:50) * Rt Notification Q1H (02/14/25 02:49) Ipratropium/Albuterol Nebule (Ipratrop/A (02/14/25 02:49) Methylprednisolone Sod Succ (Solumedrol (02/14/25 02:50) Magnesium Sulf-Water 2g/50ml (Magnesium (02/14/25 02:50) Ceftriaxone/V8g-Dkgkgfgp 1gm (Rocephin 1 (02/14/25 03:00) Doxycycline 100mg/Ns 100ml Pb (Vibramyci (02/14/25 08:00) Ferritin (02/14/25 02:55) TSH (02/14/25 02:55) Hgb A1c (02/14/25 02:55) MG (02/14/25 02:55) PHOS (02/14/25 02:55) Vital Signs 02/14/25 02/14/25 02/14/25 02/14/25 02:30 03:13 03:15 03:15 Temp 97.5 Pulse 82 84 81 Resp 20 26 20 B/P (MAP) 211/66 173/72 (105) Pulse Ox 100 98 100 O2 Flow Rate 2.0 8.0 Laboratory Tests Test 02/14/25 02:55 White Blood Count 12.2 H Red Blood Count 3.70 L Hemoglobin 8.6 L Hematocrit 27.6 L Mean Corpuscular Volume 74.5 L Mean Corpuscular Hemoglobin 23.3 L Mean Corpuscular Hemoglobin Concent 31.2 L Red Cell Distribution Width 16.3 H Platelet Count 404 Mean Platelet Volume 7.9 Neutrophils (%) (Auto) 85.4 H Lymphocytes (%) (Auto) 9.5 L Monocytes (%) (Auto) 4.3 Eosinophils (%) (Auto) 0.2 Basophils (%) (Auto) 0.6 Neutrophils # (Auto) 10.4 H Lymphocytes # (Auto) 1.2 Monocytes # (Auto) 0.5 Eosinophils # (Auto) 0.0 Basophils # (Auto) 0.1 CBC Comment Prothrombin Time 10.7 INR International Normalized Ratio 1.0 Activated Partial Thromboplast Time 32 Coagulation Comments Sodium Level 139 Potassium Level 3.2 L Chloride Level 104 Carbon Dioxide Level 26.6 Anion Gap 8 Blood Urea Nitrogen 13 Creatinine 0.68 Estimated GFR/1.73 m2 83 BUN/Creatinine Ratio 19.1 Glucose Level 97 Hemoglobin A1c 5.5 Calcium Level 8.8 Phosphorus Level 3.3 Magnesium Level 1.8 Ferritin 81 Troponin I High Sensitivity 56 *H Pro-B-Type Natriuretic Peptide 593 H Albumin 2.7 L Procalcitonin 0.07 Thyroid Stimulating Hormone (TSH) 0.96 Chemistry Comments EKG/XRAY/CT/US/VASC/MRI Chest X-Ray : Interpreted By: radiologist Views: 1 VIEW Additional Comments CHEST RADIOGRAPH INDICATION: CP TECHNIQUE: Single frontal view of the chest was obtained COMPARISON: DI CHEST,SINGLE VIEW on DOS: 05/01/24, DI CHEST,SINGLE VIEW on DOS: 03/05/24, DI CHEST,SINGLE VIEW on DOS: 11/28/23, DI CHEST,SINGLE VIEW on DOS: 10/17/22, CHEST,SINGLE VIEW on DOS: 07/21/22 FINDINGS: Lines and Tubes: None Lungs: No focal consolidation. Diffuse reticular opacities may reflect atypical pneumonia versus moderate pulmonary edema. Pleura: No effusion. No pneumothorax. Cardiomediastinal contours: Unremarkable Bones: No acute osseous abnormality. IMPRESSION: 1. Diffuse reticular opacities may reflect atypical pneumonia versus moderate pulmonary edema. Underlying chronic lung disease also considered. Electronically Signed by:ISRAEL MCGREGOR MD Date & Time: 02/14/25 0355 Medical Decision Making Additional information obtaine: N/A Findings MDM: Limited: (2 points from category 1 or one discussion with independent historian). Moderate: one of the following (3 points from category 1, or independent interpretations of tests performed by another physician/QHP: (ct,ecg,rad shelia,rhythm strip,or comparing xray to prior), or discussion of tests or manag ement with other professionals (not including [facility] ER doc/PA or family members.) High: (2 of 3 from : category 1 (3 points), independent interpretation of tests performed by another physician/QHP, and discussion of tests or management). Prior ER notes reviewed: Patient was hypoxic and in moderate respiratory distress on arrival to the emergency department with cough, wheeze, discomfort. We treated as an infectious process with underlying chronic asthma disease. Ceftriaxone Was given in the emergency department as well as albuterol, solumedrol 125 mg IV, 2 g of magnesium sulfate, duo nebs. Patient was borderline needing BiPAP, however, after treatments had slight improvement and was able to be avoided. She had wheezing throughout all long builds, inspiratory and expiratory on arrival throughout entire respiratory cycle after treatment had slightly less wheeze on inspiration, but still extreme wheeze on expiration. Patient will need to be admitted for Q4 Albuterol nebulization's. EKG showed no ST elevation, depression, normal intervEKG showed no ST elevation, depression, normal intervals and no GA versions. No signs of ischemia. Discussion had with hospitalist Team who agreed to admit patient for pneumonia with underlying chronic disease.] Number of Independent Historians: [3+] Non [facility] ER notNursing notes reviewed 1.Triage notes reviewed 2.Nursing notes reviewed Category 2: I independently interpreted the: [1] Category 3: Discussion with other professionals: [1] SOCIAL DETERMINANTS OF HEALTH Problems related to: ( )Challenges with access to Primary Care or Outpatient Speciality Care ( )Psychosocial circumstances such as mental health issues ( )Social environment: such as violence or substance abuse ( )Housing and economic circumstances: such as homelessness ( )Employment and unemployment: such as recently loss of employment ( )Occupational exposures or injuries: ( )Accessing ED outside of normal PCP hours ( )Language barrier: ( )Primary support group, including family circumstances: Prescription Management: Rx strength meds given Listed in note. v] New Prescriptions: [] ( )I have reviewed the patient's medications and I do not recommend any changes at this time. (Applies only if checked) Comorbid conditions include but are not limited to: [] Differential includes but is not limited to: [Asthma, COPD, pneumonia, CHF] Differential Diagnosis See MDM Departure Disposition: ADMITTED INPATIENT Admitted to Inpatient Unit: to hospitalist Impression: Primary Impression: Asthma Additional Impressions: Respiratory distress Chronic obstructive pulmonary disease Acute exacerbation of chronic obstructive airways disease Acute upper respiratory infection Condition: Fair Referrals: NO PRIMARY CARE PROVIDER (PCP) Education Educated: Patient Educated regarding: diagnosis, treatment, prognosis Signature Scribe Signature: Scribed for Fidencio Ferraro MD by Lovely Dumont . 02/14/25 02:54 Attestation: Scribed for Fidencio Ferraro MD by Fidencio Ferraro . 02/14/25 0254 FIDENCIO FERRARO MD Feb 14, 2025 02:53 LOVELY BAÑUELOS Feb 14, 2025 02:59
[2025-02-14] MEDS: CefTRIAXone/D5W-Rocephin 1gm 50 ML IV ONE (03:00)
[2025-02-14 03:02] LABS: MEAN PLATELET VOLUME 7.9 FL (7.4-10.4); RED CELL DISTRIBUTION WIDTH 16.3 % (11.5-14.5)
[2025-02-14] MEDS: albuterol 2.5 MG/3 ML nebule NEB ONE (03:12)
[2025-02-14] MEDS: ipratropium/albuterol 3ml nebule NEB STA (03:12)
[2025-02-14] MEDS ORDERED: potassium Cl 40MEQ/1/2NS 520ml 520 ML IV PRN (03:20)
[2025-02-14] MEDS ORDERED: magnesium hydroxide 30ml (MOM) UD suspension PO PRN (03:20)
[2025-02-14] MEDS ORDERED: potassium Cl 20 mEq SR tablet PO PRN (03:20)
[2025-02-14] MEDS ORDERED: magnesium sulf-water 4G/100mL 100 ML IV PRN (03:20)
[2025-02-14] MEDS ORDERED: ondansetron/PF 4mg/2ml inj IV PRN (03:20)
[2025-02-14] MEDS ORDERED: magnesium sulf-water 2g/50mL 50 ML IV PRN (03:20)
[2025-02-14] MEDS ORDERED: magnesium Cl slow-release 64mg tablet PO PRN (03:20)
[2025-02-14 03:22] LABS: CREATININE 0.68 MG/DL (0.40-0.90); PRO BRAIN NATRIURETIC PEPTIDE 593 PG/ML (0-450); TOTAL CARBON DIOXIDE 26.6 MMOL/L (24-32); eCRCL 52 ML/MIN; eGFR 83 ML/MIN
--- NOTE | 2025-02-14 03:58 | RADIOLOGY REPORT ---
CHEST RADIOGRAPH INDICATION: CP TECHNIQUE: Single frontal view of the chest was obtained COMPARISON: DI CHEST,SINGLE VIEW on DOS: 05/01/24, DI CHEST,SINGLE VIEW on DOS: 03/05/24, DI CHEST,SINGLE VIEW on DOS: 11/28/23, DI CHEST,SINGLE VIEW on DOS: 10/17/22, CHEST,SINGLE VIEW on DOS: 07/21/22 FINDINGS: Lines and Tubes: None Lungs: No focal consolidation. Diffuse reticular opacities may reflect atypical pneumonia versus moderate pulmonary edema. Pleura: No effusion. No pneumothorax. Cardiomediastinal contours: Unremarkable Bones: No acute osseous abnormality. IMPRESSION: 1. Diffuse reticular opacities may reflect atypical pneumonia versus moderate pulmonary edema. Underlying chronic lung disease also considered.
[2025-02-14] MEDS ORDERED: albuterol 2.5 MG/3 ML nebule NEB PRN (04:25)
[2025-02-14] MEDS: ipratropium/albuterol 3ml nebule NEB SCH ×2 (04:25→19:04)
--- NOTE | 2025-02-14 04:37 | HISTORY AND PHYSICAL-Residence ---
History & Physical Providers to CC Resident Creating Document: MARY NEWMAN EB, RES ~ History of Present Illness Primary Medical Doctor: Chirag Reason for Admit\Complaint: Shortness of breath, productive cough History of Present Illness A 84 years old female with history of Hypothyroidism, hypertension, rate controlled AFib, well-controlled COPD(Asthma ), CAD status post PTCA, rheumatoid arthritis, CVAs x 2: 2009 and 2018, brought in by ambulance from home to the ED for the chief complaint of shortness of breath with productive cough for the last 1 week. Patient states that she has cough with white phlegm and shortness of breath for the last 1 week which is progressive , more worsening for the past 2 days and did not improve with inhalers and nebulization at home. Patient also reports occasional chills. Patient denies any orthopnea, PND, fever, chest pain, abdominal pain, nausea, vomiting, diarrhea, lightheadedness, syncope, swelling of legs, palpitations. Patient denies any recent sick contacts. Allergies: Coded Allergies: sumatriptan (Verified Allergy, Severe, SWELLING OF THROAT, 02/14/25) sumatriptan succinate (Verified Allergy, Unknown, 02/14/25) Home Medications Home Medications Active Nifedipine Er (Nifedipine) 30 Mg Tablet.sa 30 Mg PO HS 30 Days Reported Alendronate Sodium 70 Mg Tablet 1 Tab PO Q7D Advair 100-50 Diskus (Salmeterol Xinafoate/Fluticasone) 1 Each Disk.w.dev 1 Puff INH Q12H Metoprolol Tartrate 25 Mg Tablet 2 Tab BID Losartan Potassium 50 Mg Tablet 1 Tab PO DAILY Amiodarone HCl 100 Mg Tablet 1 Tab PO DAILY Ferrous Sulfate 325 Mg (65 Mg Iron) Tablet 1 Tab PO BID Leflunomide 20 Mg Tablet 1 Tab PO DAILY Tobramycin-Dexameth Ophth Susp (Tobramycin/Dexamethasone) 0.3 %-0.1 % Drops.susp 1 Drop LEFTEYE TID Lidocaine 5 % Adh..patch 1 Patch TP DAILY Vitamin D3 (Cholecalciferol (Vitamin D3)) 25 Mcg (1000 Unit) Capsule 1 Cap PO DAILY Duoneb 2.5-0.5 Mg/3 Ml Soln (Ipratropium/Albuterol Sulfate) 0.5 Mg-3 Mg (2.5 Mg Base)/3 Ml Ampul.neb 3 Ml NEB BID Pantoprazole Sodium 40 Mg Tablet. 1 Tab PO DAILY Eliquis (Apixaban) 2.5 Mg Tablet 1 Tab PO Q12H Plaquenil* (Hydroxychloroquine Sulfate) 200 Mg Tablet 1 Tab PO DAILY Tab-A-Dariana Tablet (Multivitamin with Folic Acid) 400 Mcg Tablet 1 Tab PO DAILY Atorvastatin Calcium 40 Mg Tablet 1 Tab PO DAILY Levothyroxine Sodium 50 Mcg Tablet 1 Tab PO DAILY Past Medical History Past Medical History Hypothyroidism, hypertension, rate controlled AFib, well-controlled COPD(Asthma ), CAD status post PTCA, rheumatoid arthritis, CVAs x 2: 2009 and 2019, peripheral vascular disease in lower extremity ( follows Dr. Strong, patient states that Dr. Strong is planning surgery for PVD ) Past Surgical History Surgical History Comment Bilateral hip replacement Cholecystectomy Family History Family History: FH: myocardial infarction FATHER, , Age: 75, Cause: Emphysema lung, Onset:75 Past Social History Social History Comment Used to smoke 42 years ago, smoked for 10 years about five cigarettes per day Denies alcohol use, denies any other illicit drug abuse in the lifetime Lives at home with her duaghter, use a walker to ambulate Smoking: Non-Smoker, Quit greater than 1 year Alcohol Use: None Drug Use: None Lives with: Family, Alone Lives In: Home ROS All Other Systems: Reviewed and Negative ROS Constitutional: No fever, chills, dizziness, weight gain or loss, night sweats Eyes: No pain, erythema, discharge, blurring of vision ENT: No sore throat, epistaxis, tinnitus Cardiovascular:No chest pain, palpitations, syncope, lower extremity edema, paroxysmal nocturnal dyspnea Respiratory: Reports Shortness of breath and cough, No hemoptysis. Gastrointestinal:No Abdominal pain, vomiting,nausea and melena. Normal appetite. No constipation,diarrhea, hematemesis, Musculoskeletal: No swelling or edema of extremities. Integumentary: No change in skin, hair, nails. No swelling, bruising, abrasions Neurologic: No weakness,No headache, neck pain, numbness or tingling of the extremities, Psychiatric: No delusions, depression, loss of interest in normal activity or change in sleep pattern, hallucinations, suicidal ideations Endocrine: No fatigue, no weakness. polydipsia, polyuria, change in appetite, heat or cold intolerance, sweating, dry skin Hematological: No bleeding, petechiae, bruising Allergies: No asthma or urticaria Exam Vitals: Vital Signs Date Time Temp Pulse Resp B/P (MAP) Pulse Ox O2 Delivery O2 Flow Rate FiO2 02/14/25 04:14 91 26 94 02/14/25 03:13 8.0 02/14/25 02:30 97.5 211/66 General: Awake , alert and oriented to time,place, person,not in distress HEENT: Atraumatic, normocephalic, PERRLA, EOMI, anicteric sclera ; pink conjunctiva, moist mucos membranes Neck: Trachea midline. Supple, normal range of motion, no JVD, no lymphadenopathy Chest and Respiratory: Diminished breath sounds bilaterally with rhonchi, no tachypnea. Cardiac: S1, S2 heard,Irregularly irregular , pansystolic aortic and mitral murmur present grade 3/5 Abdomen: Soft, No tenderness, No guarding or rigidity, العلي's sign negative. normal bowel sounds x4 quadrant, no hepatosplenomegaly MSK: Range of motion of all extremities are normal. There is no joint pain or joint swelling or joint erythema. There is no muscle pain or tenderness or swelling. Extremities: warm, well-perfused, No cyanosis, clubbing, 2+ pulses felt Neurological: Mental status exam: alert and consciousness, orientation, memory, speech - Cranial nerve test: Cranial nerves II-XII intact. - Motor system: Normal Nutrition, normal tone, Power 5/5, no involuntary movements - Sensory system: Intact - Reflex testing: Biceps, triceps and knee reflexes 2+ - Cerebellar: Normal Skin: Warm and dry Psychiatry: Affect and mood are normal Diagnostic Data Last Recorded Lab Results: 02/14/25 0255 02/14/25 0255 Advance Care Planning Advanced Care plannin - 30 Minutes (I spent a total of 17 minutes on reviewing various resuscitative measures/ACP with the patient at the time of admission. The patient has decided on full code status) Additional Plan Pneumonia covering Gram-positive, Gram-negative and atypical organisms CXR shows diffuse reticular opacities may reflect atypical pneumonia versus moderate pulmonary edema. Underlying chronic lung disease also considered. Follow up with CTA chest WBC is 12.2, procalcitonin is 0.07 Follow up on lactate levels Follow up on sputum culture and Gram stain Follow up on blood culture Follow up on influenza and COVID test IV Rocephin 1 g and IV Zithromax 500 mg daily COPD with acute exacerbation underlying asthma CXR shows diffuse reticular opacities may reflect atypical pneumonia versus moderate pulmonary edema. Underlying chronic lung disease also considered. Nebulization with ipratropium/albuterol q.4h scheduled Nebulization with albuterol q.2h PRN Incentive spirometry q.1h while awake IV Solu-Medrol 125 mg was given in ER and started on 60 mg b.i.d. daily IV Rocephin 1 g and IV Zithromax 500 mg daily Microcytic hypochromic anemia H&H are 8.6/27.6 Patient denies any black tarry stools or previous history of GI bleed Follow up on stool occult blood test and iron studies Hypokalemia Potassium is 3.2 Replacement as per protocol Chronic persistent AFib, Rate controlled CHADS-VASc- 5 History of CVA- 2009 and 2019 Continue amiodarone 100 mg daily after med rec Continue home medications of metoprolol tartrate 25 mg b.i.d., nifedipine 30 mg daily and Eliquis 2.5 mg daily after med rec Continue atorvastatin after med rec Hypertension BP is 211/66 on admission, came down to 155/74 without any medication Current medications include metoprolol, lisinopril, nifedipine after medrec Rheumatoid arthritis Osteoporosis Continue home medications of leflunomide and hydroxychloroquine after med rec Continue vitamin-D and calcium supplements Hypothyroidism Follow up on TSH Follow lipid panel Continue home medication of levothyroxine 50 mcg daily Continue atorvastatin after med rec Code status: Full code DVT prophylaxis : Eliquis, SCD Nutrition: Heart healthy Physical therapy: ordered Line/tube: PIV Disposition: Admit to the ortho floor, continue medical management for pneumonia and asthma exacerbation. Resident attestation The above note has been reviewed and supervised by a senior resident PGY2/PGY3 Patient was seen, examined and discussed with the attending physician Tex Newman MD Internal Medicine Resident, PGY 1 Date of Service: Feb 14, 2025 Billing Provider: SHAWN SORIA MD Common Visit Codes: [id number] INP/OBS CARE (HIGH) Assessment/Plan Assessment 84-year-old with multiple comorbid's including prior CAD, CVA, rheumatoid arthritis, and COPD. Current admission is with shortness of breath. Imaging consistent with possible CHF/atypical pneumonia more in favor of a pneumonic process. Subtle right procalcitonin noted. Discussed the case with residents. Reviewed notes by the resident . Agree with his assessments and plans. Antibiotics as now Await CT chest results May need an echocardiogram if there are none done recently. MARY NEWMAN, RES Feb 14, 2025 04:37 SHAWN SORIA MD Feb 14, 2025 06:16
[2025-02-14 04:46] LABS: PHOSPHORUS 3.3 MG/DL (2.3-4.5)
[2025-02-14 05:23] LABS: APTT 32 SECONDS (22-32); INR 1.0 INR
--- NOTE | 2025-02-14 07:26 | RADIOLOGY REPORT ---
CTA Chest with intravenous contrast INDICATION: sob COMPARISON: DI CHEST,SINGLE VIEW on DOS: 02/14/25, DI CHEST,SINGLE VIEW on DOS: 05/01/24, DI CHEST,SINGLE VIEW on DOS: 03/05/24, CT CTA CHEST PE on DOS: 11/28/23, DI CHEST,SINGLE VIEW on DOS: 11/28/23 TECHNIQUE: Multidetector spiral CTA of the chest was performed of the chest with intravenous contrast. PULMONARY ANGIOGRAPHY PROTOCOL was utilized using a bolus- tracking technique centered on the main pulmonary artery. Axial, coronal and sagittal multiplanar and MIP reformats were performed. Radiation Dose : 1. Chest: CTDI volume is 6.4 mGy. Dose-length product is 2039 mGy*cm The dose indicators for CT are the volume Computed Tomography (CT) Dose Index (CTDIvol) and the Dose Length Product (DLP), and are measured in units of mGy and mGy-cm, respectively. These indicators are not patient dose, but values generated from the CT scanner acquisition factors. The report includes radiation exposure data for exposures received during this examination. FINDINGS: Pulmonary artery: No pulmonary embolism Lower neck: Normal thyroid. Lungs: Multifocal pneumonia throughout both lungs. Heart/Vascular Structures: Normal heart size. No pericardial effusion. Lymph Nodes: No adenopathy Pleura: No pleural effusion or significant pneumothorax. Musculoskeletal: No acute osseous abnormality. Soft tissues: Normal. Upper abdomen: Limited portions of the upper abdomen are unremarkable. IMPRESSION: 1. No pulmonary embolism. 2. Multifocal pneumonia.
[2025-02-14] MEDS: potassium Cl 20 mEq SR tablet PO PRN (07:47)
[2025-02-14] MEDS ORDERED: doxycycline 100mg/NS 100mL PB 100 ML IV ONE (08:00)
[2025-02-14] MEDS: K and/or MAG REPLACEMENT MC SCH (08:00)
[2025-02-14 08:12] LABS: INFLUENZA TYPE A ANTIGEN RAPID NEGATIVE (Negative); INFLUENZA TYPE B ANTIGEN RAPID NEGATIVE (Negative)
[2025-02-14] MEDS: guaiFENesin ER 600mg tablet PO SCH (08:29)
[2025-02-14] MEDS: azithromycin/NS 500mg/250ml 250 ML IV SCH (08:29)
[2025-02-14] MEDS: docusate sod 100mg capsule PO SCH (08:30)
[2025-02-14 09:06] LABS: % IRON SATURATION 3 % (11-46)
[2025-02-14] MEDS: iron sucrose complex injection 300 MG in normal saline 250ml IV soln 250 ML IV ONE (11:02)
[2025-02-14 13:38] LABS: LEUKOCYTE ESTERASE ,URINE NEGATIVE (Neg); NITRITES, URINE NEGATIVE (Neg); OCCULT BLOOD,URINE NEGATIVE (Neg); UA COLLECTION TYPE CLN CATCH MIDSTREAM
--- NOTE | 2025-02-14 17:39 | CARDIOLOGY REPORT ---
APPROVED REPORT EXAM: Comprehensive 2D, Doppler, and color-flow Echocardiogram. Patient Location: 349 A Blood Pressure: 139/68 mmHg Heart Rate: 67 bpm Rhythm: SINUS Indications HYPERTENSION ATRIAL FIBRILLATION 3/6 PANSYSTOLIC MURMUR [employer]er: Paola Strong MD Previous echo: 05/01/24 [facility] (EF 75-80%, mild AI, mild MS pk/mn grad 10/4 mmHg, mild MR, mild to mod TR) 2D Dimensions RVDd 3.7 cm LA Diam 3.6 cm IVSd 1.3 (0.7-1.1cm) LVDd 3.8 cm PWd 1.1 (0.7-1.1cm) IVSs 1.5 (0.8-1.2cm) LVDs 2.5 (2.5-4.0cm) PWs 1.5 (0.8-1.2cm) LVOT Diameter 1.91 (1.8-2.4cm) LVEF(%) 61.3 (>50%) Ao Asc Diam. 3.00 cm IVC 17.67 mm FS (%) 32.3 % SV 36.9 ml CO 2.6 L/min M-Mode Dimensions Left Atrium(MM) 3.27 (2.5-4.0cm) Aortic Root 2.97 (2.2-3.7cm) Aortic Cusp Exc 0.95 (1.5-2.0cm) MV EPSS 0.4 (<0.5cm) Biplane 2D LA Volumes LA ESV Index 39.20 mL/m2 Aortic Valve AoV Peak Obed. 289.4 cm/s AoV VTI 64.2 cm AO Peak GR. 33.5 mmHg AO Mean GR. 18 mmHg LVOT VTI 33.27 cm LVOT Peak Obed. 138.6 cm/s VELIA (VTI) 1.51 cm2 AI P 1/2 Time 504 ms AV DI 0.52 % Mitral Valve MV E Velocity 155.1 cm/s MV Peak Gr. 17 mmHg MV DECEL TIME 272 ms MV A Velocity 146.4 cm/s MV Mean Gr. 8 mmHg MV PHT 60 ms E/A Ratio 1.1 MVA (PHT) 2.84 cm2 MR VMax 607.9 cm/s MV VMax 207.4 cm/s MR PG Max 147.8 mmHg TDI Medial E' P. V 14.08 cm/s E/Medial E' 11.0 Tricuspid Valve TR P. Velocity 298 cm/s RAP ESTIMATE 10 mmHg TR Peak Gr. 36 mmHg RVSP 46 mmHg Pulmonary Vein S1 Velocity 88.0 cm/s D2 Velocity 57.8 cm/s PVa Velocity 38.4 cm/s PVa Duration 104 msec LEFT VENTRICLE Normal LV size and function. Mild concentric hypertrophy. LVEF is 60-65%. RIGHT VENTRICLE RV is mildly dilated with normal systolic function. RVSP is estimated at 46 mmHg. ATRIA Left atrium is moderately dilated. AORTIC VALVE Trileaflet AV appears moderately sclerotic and calcified with mild stenosis. VELIA: 1.51 cmsq; Pkv: 2.89 m/sec; Gradients: 34 / 18 mmHG. Moderate insufficiency by color and spectral flow Doppler. MITRAL VALVE Moderate MV annular and leaflet calcification with mild stenosis. MVA: 2.84 cmsq; Pkv: 2.07 m/sec; Gradients: 17 / 8 mmHG. Moderate regurgitation by color and spectral flow Doppler. TRICUSPID VALVE TV appears structurally normal with moderate regurgitation by color and spectral flow Doppler. PULMONIC VALVE Normal PV without stenosis, physiologic insufficiency by color and spectral flow Doppler. GREAT VESSELS Aortic root is normal in size. Ascending aorta is normal in size. IVC is normal in size and collapses greater than 50% with inspiration. PERICARDIUM Normal pericardium. No effusion. Other Information Study Quality: Adequate Conclusion Normal LV size and function. Mild concentric hypertrophy. LVEF is 60-65%. RV is mildly dilated with normal systolic function. RVSP is estimated at 46 mmHg. Left atrium is moderately dilated. Trileaflet AV appears moderately sclerotic and calcified with mild stenosis. VELIA: 1.51 cmsq; Pkv: 2.89 m/sec; Gradients: 34 / 18 mmHG. Moderate insufficiency by color and spectral flow Doppler. Moderate MV annular and leaflet calcification with mild stenosis. MVA: 2.84 cmsq; Pkv: 2.07 m/sec; Gradients: 17 / 8 mmHG. Moderate regurgitation by color and spectral flow Doppler. TV appears structurally normal with moderate regurgitation by color and spectral flow Doppler. Normal pericardium. No effusion.
--- NOTE | 2025-02-14 19:05 | PROGRESS NOTE ---
Daily Progress Note Providers to CC ~ Antibiotic Timeout Antibiotic Ordered?: Yes Subjective The patient informs me she feels a whole lot better however she does have scattered rhonchi in all listening deluca on exam. The patient is afebrile and remains on room air Objective Vital Signs Date Time Temp Pulse Resp B/P (MAP) Pulse Ox O2 Delivery O2 Flow Rate FiO2 02/14/25 18:00 98.2 63 20 150/76 (100) 97 Room Air 02/14/25 10:32 0.0 02/14/25 10:26 21 Result Diagram: 02/14/25 0255 02/14/25 025 Gen. No acute distress alert and oriented 4 Lungs scattered rhonchi in all listening deluca Heart normal sinus rhythm no murmurs rubs or clicks noted Abdomen soft nontender bowel sounds are normoactive Lower extremities no clubbing cyanosis, nor edema appreciated bilaterally Coagulation Studies Laboratory Tests Test 02/14/25 02:55 Prothrombin Time 10.7 SECONDS (9.0-12.0) INR International Normalized Ratio 1.0 INR Activated Partial Thromboplast Time 32 SECONDS (22-32) Coagulation Comments Problem\Assessment\Plan Problems/Diagnosis: (1) Multifocal pneumonia Pneumonia covering Gram-positive, Gram-negative and atypical organisms CXR shows diffuse reticular opacities may reflect atypical pneumonia versus moderate pulmonary edema. Underlying chronic lung disease also considered. CTA demonstrated multifocal pneumonia WBC is 12.2, procalcitonin is 0.07 Follow up on lactate levels Follow up on sputum culture and Gram stain Follow up on blood culture influenza and COVID test IV Rocephin 1 g and IV Zithromax 500 mg daily Improving COPD with acute exacerbation underlying asthma CXR shows diffuse reticular opacities may reflect atypical pneumonia versus moderate pulmonary edema. Underlying chronic lung disease also considered. Nebulization with ipratropium/albuterol q.4h scheduled Nebulization with albuterol q.2h PRN Incentive spirometry q.1h while awake IV Solu-Medrol 125 mg was given in ER and started on 60 mg b.i.d. daily IV Rocephin 1 g and IV Zithromax 500 mg daily Microcytic hypochromic iron-deficiency anemia H&H are 8.6/27.6 Patient denies any black tarry stools or previous history of GI bleed Follow up on stool occult blood test Serum iron studies demonstrate iron level of 7 with a normal TIBC of 280 and a 3% saturation IV Venofer is ordered the patient takes iron at home Daily CBC is to continue monitor and transfuse if hemoglobin is below seven Hypokalemia Potassium is 3.2 Replacement as per protocol Chronic persistent AFib, Rate controlled CHADS-VASc- 5 History of CVA- 2009 and 2018 Continue amiodarone 100 mg daily after med rec Continue home medications of metoprolol tartrate 25 mg b.i.d., nifedipine 30 mg daily and Eliquis 2.5 mg daily Continue atorvastatin Hypertension BP is 211/66 on admission, came down to 155/74 without any medication Current medications include metoprolol, lisinopril, nifedipine Rheumatoid arthritis Osteoporosis Continue home medications of leflunomide and hydroxychloroquine Continue vitamin-D and calcium supplements Hypothyroidism TSH of 0.96 Follow lipid panel Continue home medication of levothyroxine 50 mcg daily Continue atorvastatin after med rec Moderate mitral valve regurgitation Moderate aortic insufficiency Monitor tricuspid valve regurgitation Periodicly monitor echocardiogram Code status: Full code DVT prophylaxis : OLIVER Gupta Nutrition: Heart healthy Physical therapy: ordered Line/tube: PIV Date of Service: Feb 14, 2025 Billing Provider: PUMA CORNELIUS DO Common Visit Codes: NOT BILLABLE (Admitted after midnight) PUMA CORNELIUS DO Feb 14, 2025 19:05
[2025-02-14] MEDS: mag hydrox/Alum hydrox/simeth 30ml oral suspension PO PRN (21:30)
[2025-02-15] VITALS (11 sets, daily range): BP systolic 146–170; BP diastolic 61–69; PULSE 54–63; RESP 16–22; TEMP 97.5–98.6; O2SAT 94–99
[2025-02-15 06:38] LABS: CHOL/HDL RATIO 2.3 (0.00-4.99); CREATININE 0.78 MG/DL (0.40-0.90); LDL CHOLESTEROL 52 MG/DL (50-100); TOTAL CARBON DIOXIDE 22.5 MMOL/L (24-32); eCRCL 45 ML/MIN; eGFR 71 ML/MIN
[2025-02-15 06:54] LABS: MEAN PLATELET VOLUME 8.8 FL (7.4-10.4); RED CELL DISTRIBUTION WIDTH 16.2 % (11.5-14.5)
[2025-02-15] MEDS: CefTRIAXone/D5W-Rocephin 1gm 50 ML IV SCH (08:11)
[2025-02-15] MEDS: iron sucrose complex injection 300 MG in normal saline 250ml IV soln 250 ML IV SCH (08:11)
[2025-02-15] MEDS: levoTHYROXINE 25mcg tablet PO SCH (08:13)
[2025-02-15] MEDS: amiodarone 100mg tablet PO SCH (08:13)
[2025-02-15] MEDS: pantoprazole 40mg Tablet.DR PO SCH (08:14)
[2025-02-15] MEDS: multivitamins, therapeutics tablet PO SCH (08:15)
--- NOTE | 2025-02-15 20:39 | PROGRESS NOTE ---
Daily Progress Note Providers to CC ~ Antibiotic Timeout Antibiotic Ordered?: Yes Subjective The patient is states that she feels overall improvement from yesterday though she still has [id number] coarse breath sounds scattered in all listening deluca. Her white blood cell count has normalized Objective Vital Signs Date Time Temp Pulse Resp B/P (MAP) Pulse Ox O2 Delivery O2 Flow Rate FiO2 02/15/25 19:53 57 16 Room Air 0.0 02/15/25 19:44 94 21 02/15/25 14:10 146/62 (90) 02/15/25 11:06 97.6 Result Diagram: 02/15/25 0542 02/15/25 0542 Gen. No acute distress alert and oriented 4 Lungs coarse breath sounds in all listening deluca Heart normal sinus rhythm no murmurs rubs or clicks noted Abdomen soft nontender bowel sounds are normoactive Lower extremities no clubbing cyanosis, nor edema appreciated bilaterally Coagulation Studies Laboratory Tests Test 02/14/25 02:55 Prothrombin Time 10.7 SECONDS (9.0-12.0) INR International Normalized Ratio 1.0 INR Activated Partial Thromboplast Time 32 SECONDS (22-32) Coagulation Comments Problem\Assessment\Plan Problems/Diagnosis: (1) Multifocal pneumonia Pneumonia covering Gram-positive, Gram-negative and atypical organisms CXR shows diffuse reticular opacities may reflect atypical pneumonia versus moderate pulmonary edema. Underlying chronic lung disease also considered. CTA demonstrated multifocal pneumonia WBC is 12.2, procalcitonin is 0.07 Follow up on lactate levels Follow up on sputum culture and Gram stain Follow up on blood culture influenza and COVID test IV Rocephin 1 g and IV Zithromax 500 mg daily Improving COPD with acute exacerbation underlying asthma CXR shows diffuse reticular opacities may reflect atypical pneumonia versus moderate pulmonary edema. Underlying chronic lung disease also considered. Nebulization with ipratropium/albuterol q.4h scheduled Nebulization with albuterol q.2h PRN Incentive spirometry q.1h while awake IV Solu-Medrol 125 mg was given in ER and started on 60 mg b.i.d. daily IV Rocephin 1 g and IV Zithromax 500 mg daily improving Microcytic hypochromic iron-deficiency anemia H&H are 8.6/27.6 Patient denies any black tarry stools or previous history of GI bleed Follow up on stool occult blood test Serum iron studies demonstrate iron level of 7 with a normal TIBC of 280 and a 3% saturation IV Venofer is ordered the patient takes iron at home Daily CBC is to continue monitor and transfuse if hemoglobin is below seven 02/15 hemoglobin slightly downtrended continue monitor daily CBC Hypokalemia Potassium is 3.2 Replacement as per protocol Chronic persistent AFib, Rate controlled CHADS-VASc- 5 History of CVA- 2009 and 2018 Continue amiodarone 100 mg daily after med rec Continue home medications of metoprolol tartrate 25 mg b.i.d., nifedipine 30 mg daily and Eliquis 2.5 mg daily Continue atorvastatin Hypertension BP is 211/66 on admission, came down to 155/74 without any medication Current medications include metoprolol, losartan 02/15 increase losartan to 100 mg daily Rheumatoid arthritis Osteoporosis Continue home medications of leflunomide and hydroxychloroquine Continue vitamin-D and calcium supplements Hypothyroidism TSH of 0.96 Follow lipid panel Continue home medication of levothyroxine 50 mcg daily Continue atorvastatin Moderate mitral valve regurgitation Moderate aortic insufficiency Monitor tricuspid valve regurgitation Periodicly monitor echocardiogram Code status: Full code DVT prophylaxis : Eliquis, SCD Nutrition: Heart healthy Physical therapy: ordered Line/tube: PIV Date of Service: Feb 15, 2025 Billing Provider: PUMA CORNELIUS DO Common Visit Codes: [id number] INP/OBS CARE(HIGH) PUMA CORNELIUS DO Feb 15, 2025 20:39
[2025-02-16] VITALS (9 sets, daily range): BP systolic 102–177; BP diastolic 46–77; PULSE 53–89; RESP 16–19; TEMP 97.2–97.5; O2SAT 96–99
[2025-02-16] MEDS: hydrALAZINE 20mg/ml inj. IV PRN (02:30)
[2025-02-16 05:50] LABS: MEAN PLATELET VOLUME 8.6 FL (7.4-10.4); RED CELL DISTRIBUTION WIDTH 16.4 % (11.5-14.5)
[2025-02-16 06:11] LABS: CREATININE 0.76 MG/DL (0.40-0.90); TOTAL CARBON DIOXIDE 22.2 MMOL/L (24-32); eCRCL 46 ML/MIN; eGFR 73 ML/MIN
[2025-02-16 06:28] LABS: BANDS% (MANUAL) 2.0 % (0-10); LYMPHOCYTES % (MANUAL) 3.0 % (21-51); MONOCYTES % (MANUAL) 2.0 % (2-12); NEUTROPHILS % (MANUAL) 93.0 % (42-75)
[2025-02-16 06:29] LABS: PLATELET ESTIMATE NORMAL
[2025-02-16 14:11] LABS: MEAN PLATELET VOLUME 8.5 FL (7.4-10.4); RED CELL DISTRIBUTION WIDTH 16.2 % (11.5-14.5)
--- NOTE | 2025-02-16 18:54 | PROGRESS NOTE ---
Daily Progress Note Providers to CC ~ Antibiotic Timeout Antibiotic Ordered?: Yes Subjective Continues to to experience improvement in regards her her breathing in her overall well-being. She does have coarse breath sounds however that has scattered her lung exam is improved however., the patient is have chronic iron- deficiency anemia and has a mildly downtrending hemoglobin. Objective Vital Signs Date Time Temp Pulse Resp B/P (MAP) Pulse Ox O2 Delivery O2 Flow Rate FiO2 02/16/25 10:00 97.3 89 18 102/46 (64) 99 Room Air 02/16/25 08:00 0.0 21 Result Diagram: 02/16/25 1404 02/16/25 0428 Gen. No acute distress alert and oriented 4 Lungs coarse breath sounds in all listening [place] Heart normal sinus rhythm no murmurs rubs or clicks noted Abdomen soft nontender bowel sounds are normoactive Lower extremities no clubbing cyanosis, nor edema appreciated bilaterally Coagulation Studies Laboratory Tests Test 02/14/25 02:55 Prothrombin Time 10.7 SECONDS (9.0-12.0) INR International Normalized Ratio 1.0 INR Activated Partial Thromboplast Time 32 SECONDS (22-32) Coagulation Comments Problem\Assessment\Plan Problems/Diagnosis: (1) Multifocal pneumonia Pneumonia covering Gram-positive, Gram-negative and atypical organisms CXR shows diffuse reticular opacities may reflect atypical pneumonia versus moderate pulmonary edema. Underlying chronic lung disease also considered. CTA demonstrated multifocal pneumonia WBC is 12.2, procalcitonin is 0.07 Follow up on lactate levels Follow up on sputum culture and Gram stain Follow up on blood culture influenza and COVID test IV Rocephin 1 g and IV Zithromax 500 mg daily Improving Elevated high sensitivity troponins- secondary to a mild type 2 mi due to infectious process COPD with acute exacerbation underlying asthma CXR shows diffuse reticular opacities may reflect atypical pneumonia versus moderate pulmonary edema. Underlying chronic lung disease also considered. Nebulization with ipratropium/albuterol q.4h scheduled Nebulization with albuterol q.2h PRN Incentive spirometry q.1h while awake IV Solu-Medrol 125 mg was given in ER and started on 60 mg b.i.d. daily IV Rocephin 1 g and IV Zithromax 500 mg daily improving Microcytic hypochromic iron-deficiency anemia H&H are 8.6/27.6 Patient denies any black tarry stools or previous history of GI bleed Follow up on stool occult blood test Serum iron studies demonstrate iron level of 7 with a normal TIBC of 280 and a 3% saturation IV Venofer is ordered the patient takes iron at home Daily CBC is to continue monitor and transfuse if hemoglobin is below seven 02/15 hemoglobin slightly downtrended continue monitor daily CBC 02/16 hemoglobin continues to mildly downtrend continue monitor Hypokalemia Potassium is 3.2 Replacement as per protocol Resolved Chronic persistent AFib, Rate controlled CHADS-VASc- 5 History of CVA- 2009 and 2018 Continue amiodarone 100 mg daily after med rec Continue home medications of metoprolol tartrate 25 mg b.i.d., nifedipine 30 mg daily and Eliquis 2.5 mg daily Continue atorvastatin Hypertension BP is 211/66 on admission, came down to 155/74 without any medication Current medications include metoprolol, losartan 02/15 increase losartan to 100 mg daily 02/16 blood pressure has improved however her map was 64 midmorning- the patient may require a dose of losartan 75 mg daily for discharge Rheumatoid arthritis Osteoporosis Continue home medications of leflunomide and hydroxychloroquine Continue vitamin-D and calcium supplements Hypothyroidism TSH of 0.96 Follow lipid panel Continue home medication of levothyroxine 50 mcg daily Continue atorvastatin Moderate mitral valve regurgitation Moderate aortic insufficiency Monitor tricuspid valve regurgitation Periodicly monitor echocardiogram Code status: Full code DVT prophylaxis : OLIVER Gupta Nutrition: Heart healthy Physical therapy: ordered Line/tube: PIV Disposition: Anticipate discharge in the a.m. if hemoglobin remains stable. Date of Service: Feb 16, 2025 Billing Provider: PUMA CORNELIUS DO Common Visit Codes: [id number] INP/OBS CARE(HIGH) PUMA CONRELIUS DO Feb 16, 2025 18:54
[2025-02-17] VITALS (7 sets, daily range): BP systolic 149–167; BP diastolic 64–70; PULSE 60–101; RESP 14–18; TEMP 97–97.6; O2SAT 97–100
[2025-02-17 05:47] LABS: MEAN PLATELET VOLUME 8.6 FL (7.4-10.4)
[2025-02-17 05:49] LABS: RED CELL DISTRIBUTION WIDTH 16.0 % (11.5-14.5)
[2025-02-17 06:02] LABS: CREATININE 0.77 MG/DL (0.40-0.90); TOTAL CARBON DIOXIDE 22.1 MMOL/L (24-32); eCRCL 46 ML/MIN; eGFR 72 ML/MIN
[2025-02-17 08:54] LABS: BANDS% (MANUAL) 1.0 % (0-10); LYMPHOCYTES % (MANUAL) 2.0 % (21-51); METAMYLEOCYTES% (MANUAL) 1.0 % (0-0); MONOCYTES % (MANUAL) 3.0 % (2-12); NEUTROPHILS % (MANUAL) 93.0 % (42-75); NUCLEATED RED BLOOD CELLS 3 /100WBC (0-0)
[2025-02-17 08:55] LABS: PLATELET ESTIMATE NORMAL
[2025-02-17 08:56] LABS: ELLIPTOCYTES FEW
--- NOTE | 2025-02-17 12:06 | DISCHARGE SUMMARY ---
Discharge Summary Providers to CC ~ Discharge Summary Admission Diagnosis: PNA, Hypertensive urgency Hospital Course DATE OF ADMISSION: 02/14/2025 DATE OF DISCHARGE: 02/17/2025 Discharge Diagnosis\Comment: Acute respiratory failure Pneumonia COPD CHF CVAs CAD hypertension hyperlipidemia hypothyroidism Operations\Procedures: None Consultants: None Complications: None Condition on DC: Stable New Medications: Azithromycin (Azithromycin) 500 Mg Tablet 1 TAB PO DAILY for 5 Days, #5 TAB 0 Refills Nifedipine (Nifedipine ER) 90 Mg Tablet.er 1 TAB PO DAILY for 30 Days, #30 TAB 0 Refills Prednisone (Prednisone) 10 Mg Tablet 0 PO DAILY, #42 TAB Take 4 tabs daily x4 days, then 3 daily x4 days 2 daily x4 days 1 daily x4 days 1/2 daily x4 days then STOP Continued Medications: Amiodarone HCl (Amiodarone HCl) 100 Mg Tablet 1 TAB PO DAILY Apixaban (Eliquis) 2.5 Mg Tablet 1 TAB PO Q12H Atorvastatin Calcium (Atorvastatin Calcium) 40 Mg Tablet 1 TAB PO DAILY Cholecalciferol (Vitamin D3) (Vitamin D3) 25 Mcg (1000 Unit) Capsule 1 CAP PO DAILY, CAP 0 Refills Ferrous Sulfate (Ferrous Sulfate) 325 Mg (65 Mg Iron) Tablet 1 TAB PO BID Fluticasone/Salmeterol (Advair 100-50 Diskus) 1 Each Disk.w.dev 1 PUFF INH Q12H Hydroxychloroquine Sulfate* (Plaquenil*) 200 Mg Tablet 1 TAB PO DAILY Ipratropium/Albuterol Sulfate (Duoneb 2.5-0.5 Mg/3 Ml Soln) 0.5 Mg-3 Mg (2.5 Mg Base)/3 Ml Ampul.neb 3 ML NEB BID Levothyroxine Sodium (Levothyroxine Sodium) 50 Mcg Tablet 1 TAB PO DAILY Lidocaine (Lidocaine) 5 % Adh..patch 1 PATCH TP DAILY Losartan Potassium (Losartan Potassium) 50 Mg Tablet 1 TAB PO DAILY Metoprolol Tartrate (Metoprolol Tartrate) 25 Mg Tablet 2 TAB BID Multivitamin with Folic Acid (Tab-A-Dariana Tablet) 400 Mcg Tablet 1 TAB PO DAILY Pantoprazole Sodium (Pantoprazole Sodium) 40 Mg Tablet.dr 1 TAB PO DAILY Tobramycin/Dexamethasone (Tobramycin-Dexameth Ophth Susp) 0.3 %-0.1 % Drops.susp 1 DROP LEFTEYE TID Discharge Summary: History of Present Illness A 84 years old female with history of Hypothyroidism, hypertension, rate controlled AFib, well-controlled COPD(Asthma ), CAD status post PTCA, rheumatoid arthritis, CVAs x 2: 2009 and 2018, brought in by ambulance from home to the ED for the chief complaint of shortness of breath with productive cough for the last 1 week. Patient states that she has cough with white phlegm and shortness of breath for the last 1 week which is progressive , more worsening for the past 2 days and did not improve with inhalers and nebulization at home. Patient also reports occasional chills. Patient denies any orthopnea, PND, fever, chest pain, abdominal pain, nausea, vomiting, diarrhea, lightheadedness, syncope, swelling of legs, palpitations. Patient denies any recent sick contacts. Patient is alert and oriented x4 in no acute distress sitting up comfortably speaking in full sentences HEENT normocephalic nontraumatic head PERRLA. EOMI. CVS first and second heart sounds are regular rate rhythm Respiratory system is clear to auscultate bilaterally no rales rhonchi crackles or wheezing Abdomen is soft scaphoid bowel sounds are positive nontender nondistended Extremities no clubbing cyanosis or edema Hospital course patient is a pleasant 84-year-old with a longstanding history of chronic AFib hypertension hyperlipidemia hypothyroidism and COPD CAD rheumatoid arthritis CVA patient was in her usual state of health at increasing shortness of breath and was admitted for COPD and a pneumonia. Patient was pancultured and started on IV antibiotics. Patient did have an infiltration on her right hand from the IV also being on Eliquis made it bleed a little bit more excessively. This has resolved the nursing staff is aware of the bandaged up the patient patient is advised to follow up with her PCP and nodulizer in one week her symptoms have resolved her family is at the bedside anxious to take her home. *Problems/Diagnosis: (1) Multifocal pneumonia (2) CHF (congestive heart failure) (3) Hyperlipidemia Status: Chronic (4) A-fib Status: Chronic (5) HTN (hypertension) Status: Chronic (6) Hypothyroid (7) Rheumatoid arthritis Status: Chronic Total Time Spent on D/C: > 30 Minutes Date of Service: Feb 17, 2025 Billing Provider: LEBRON CLAIRE MD Common Visit Codes: 23430-SRW/OBS DISCH DAY >30min LEBRON CLAIRE MD Feb 17, 2025 12:06
[2025-02-17] MEDS ORDERED: NIFE90TA70 PO (12:09)
[2025-02-17] MEDS ORDERED: AZIT500T9 PO (12:09)
[2025-02-17] MEDS ORDERED: PRED10TA23 PO (12:11)
[2025-02-17] MEDS: Ensure Enlive - 237ML PO SCH (12:38)
[2025-02-17] MEDS ORDERED: ALBU18HF2 INH (12:44)
[2025-02-17] MEDS: FLU VACC TS2025-26(6MOS UP)/PF (FLULAVAL) 45 MCG/0.5 ML SYRINGE IMVAC ONE (13:11)
[2025-02-20] MEDS ORDERED: AZIT500T9 PO (14:55)
[2025-02-20] MEDS ORDERED: NIFE90TA70 PO (14:55)
[2025-02-20] MEDS ORDERED: PRED10TA PO (14:55)
== END 2025-02-17 13:57 | disposition home health service (06) | DRG 177 ==
LOC: ER 02:19 → ED HOLD 03:30 → SUR 3N 08:07
PROVIDERS: ADMIT Internal Medicine Critical Care Medicine; ATTEND Family Medicine
PROC: B32T1ZZ Computerized Tomography (CT Scan) of Left Pulmonary Artery using Low Osmolar Contrast (ICD-10-PCS; principal; 2025-02-14)
PROC: B3201ZZ Computerized Tomography (CT Scan) of Thoracic Aorta using Low Osmolar Contrast (ICD-10-PCS; 2025-02-14)
PROC: B32S1ZZ Computerized Tomography (CT Scan) of Right Pulmonary Artery using Low Osmolar Contrast (ICD-10-PCS; 2025-02-14)
DX: J15.69 Pneumonia due to other Gram-negative bacteria (principal); I21.A1 Myocardial infarction type 2; J96.00 Acute respiratory failure, unspecified whether with hypoxia or hypercapnia; I50.9 Heart failure, unspecified; J44.0 Chronic obstructive pulmonary disease with (acute) lower respiratory infection; Z79.01 Long term (current) use of anticoagulants; I11.0 Hypertensive heart disease with heart failure; E03.9 Hypothyroidism, unspecified; M06.9 Rheumatoid arthritis, unspecified; I36.1 Nonrheumatic tricuspid (valve) insufficiency; D50.8 Other iron deficiency anemias; I48.19 Other persistent atrial fibrillation; J44.1 Chronic obstructive pulmonary disease with (acute) exacerbation; Z20.822 Contact with and (suspected) exposure to COVID-19; E87.6 Hypokalemia; E78.5 Hyperlipidemia, unspecified; I25.10 Atherosclerotic heart disease of native coronary artery without angina pectoris; Z79.899 Other long term (current) drug therapy; Z86.73 Personal history of transient ischemic attack (TIA), and cerebral infarction without residual deficits; Z98.61 Coronary angioplasty status; Z88.1 Allergy status to other antibiotic agents; Z90.49 Acquired absence of other specified parts of digestive tract
CPT/HCPCS: 36415; 71045; 71275; 80048; 80053; 80061; 81003; 82728; 83036; 83540; 83550; 83605; 83735; 83880; 84100; 84145; 84443; 84466; 84484; 85007; 85025; 85027; 85610; 85730; 87040; 87070; 87081; 87804; 87811; 93005; 93306; 94640; 94760; 96374; 97116; 97161; 97530; 99285; A6213; A7015; G0378; J0360; J0456; J0696; J1756; J2919; J7050; Q9967